=== PATIENT | female | born 1950 | race Caucasian/White ===

== ENCOUNTER 2019-02-09 19:09 | Inpatient (IN) | payer MEDICARE, MEDICAID ==
[~2019-02-09 19:09] MED LIST: ISOVUE-370 76%-LOCM 1 ML ONE
--- NOTE | 2019-02-09 20:49 | CT ---
CT ANGIOGRAM OF THE CHEST: 02/09/19 HISTORY: Chest pain, unresolved. Cough. COMPARISON: None. TECHNIQUE: CT angiogram of the chest is performed in the axial plane. Three dimensional reformatted images are s ubmitted for interpretation. FINDINGS: No mediastinal mass, lymphadenopathy or hematoma. Heart size is normal. No significant pericardial fl uid. Coronary artery calcifications identified. The thoracic and upper abdominal aorta have a normal caliber. No periaortic fat stranding. The visualized solid organs are grossly unremarkable. Mild atrophy of the pancreas. Contracted gallbl adder. Trachea and central bronchi are patent. Patchy ground glass opacities throughout the lung parenchyma additionally with dependent atelectatic change. No mass or consolidation. No pleural effusion or pneu mothorax. 3 mm nodules in the middle lobe. Adequate contrast opacification of the pulmonary arterial system to the level of the segmental arteri es. No filling defect to suggest thromboembolism. No pleural effusion or pneumothorax. IMPRESSION: 1. No evidence of pulmonary artery embolism to the level of the segmental arteries. 2. Patchy ground glass opacities. Correlate for edema or atypical infection. POS: PPP
[2019-02-09 23:17] VITALS: BMI 33.8
[2019-02-09 23:42] LABS: Troponin I Less than 0.010 ng/mL (< 0.028)
[2019-02-09] MEDS ORDERED: Sodium Chloride 0.9% 1,000 ML IV SCH (23:45)
[2019-02-09] MEDS ORDERED: Prevnar 13-Val Conj/PF 0.5 ML SYRINGE IM ONE (23:45)
[2019-02-10] MEDS: Acetaminophen/Codeine 30-300mg Tablet PO PRN (00:58)
[2019-02-10 02:20] LABS: Troponin I Less than 0.010 ng/mL (< 0.028)
[2019-02-10] MEDS ORDERED: Nitroglycerin 0.4 MG TAB (25 Tab Bottle) PO PRN (06:16)
[2019-02-10] MEDS ORDERED: Acetaminophen/Codeine 30-300mg Tablet PO PRN (06:18)
[2019-02-10] MEDS ORDERED: Bisacodyl 10 MG SUPP PR PRN (06:19)
[2019-02-10] MEDS ORDERED: Acetaminophen 325 MG TAB PO PRN (06:19)
[2019-02-10] MEDS ORDERED: Senokot S 8.6-50 MG TAB PO PRN (06:19)
[2019-02-10] MEDS: Budesonide 0.5 MG/2 ML NEB INH SCH ×2 (06:59→18:34)
[2019-02-10] MEDS ORDERED: Azithromycin 500 MG in Sodium Chloride 0.9% 250 ML 250 ML IVPB SCH (07:00)
[2019-02-10 07:19] LABS: #Eosinphils 0.2 thou/uL (0.0-0.7); #Lymphocytes 1.3 thou/uL (1.20-3.40); #Monocytes 0.3 thou/uL (0.11-0.59); #Neutrophils 3.4 thou/uL (1.40-6.50); %Basophils 0.1 % (0.0-1.0); %Lymphocytes 25.6 % (21.0-51.0); %Monocytes 6.4 % (0.0-10.0); %Neutrophils 64.9 % (42.0-75.0); Hemoglobin 9.7 g/dL (12.0-16.0); Mean Corpuscular HGB CONC 34.1 g/dL (32.0-36.0); Mean Corpuscular Hemoglobin 29.2 pg (27.0-31.0); Mean Corpuscular Volume 85.5 fL (78.0-98.0); Mean Platelet Volume 8.4 fL (7.4-10.4); Platelet Count 158 thou/uL (130-400); RBC Distribution Width 14.5 % (11.5-14.5); Red Blood Cell (RBC) Count 3.32 mill/uL (4.20-5.40); White Blood Cell (WBC) Count 5.2 thou/uL (4.8-10.8)
[2019-02-10 07:26] LABS: ALT (SGPT) 11 U/L (8-55); AST (SGOT) 14 U/L (5-34); Albumin 3.3 g/dL (3.4-4.8); Alkaline Phosphatase 87 U/L (40-150); Anion Gap 10 mmol/L (10-20); BUN (Urea Nitrogen) 9 mg/dL (9.8-20.1); Bilirubin, Total 0.3 mg/dL (0.2-1.2); CRP (Inflammatory) 2.88 mg/dL (= or < 0.5); Calc. Creatinine Clearance 67 mL/min (70-130); Calcium 7.8 mg/dL (7.8-10.44); Carbon Dioxide 24 mmol/L (23-31); Chloride 108 mmol/L (98-107); Estimated GFR-MDRD 42; Globulin 2.9 g/dL (2.4-3.5); Glucose 116 mg/dL (80-115); Magnesium 1.6 mg/dL (1.6-2.6); Potassium 3.8 mmol/L (3.5-5.1); Protein, Total 6.2 g/dL (6.0-8.3); Sodium 138 mmol/L (136-145)
[2019-02-10] MEDS: Sodium Chloride 0.9% 1,000 ML IV SCH ×2 (08:43→20:38)
[2019-02-10] MEDS: cefTRIAXone\\ROCEPHIN 2 GM in Sodium Chloride 0.9% 100 ML IVPB SCH (08:43)
[2019-02-10] MEDS: Metoprolol Tartrate 25 MG TAB PO SCH ×2 (08:46→20:40)
[2019-02-10] MEDS: guaiFENesin ER 600 MG TAB PO SCH ×2 (08:46→20:39)
[2019-02-10] MEDS: Losartan 25 MG TAB PO SCH (08:46)
[2019-02-10] MEDS: Aspirin 325 mg Enteric Coated Tablet PO SCH (08:46)
[2019-02-10] MEDS: Montelukast Sodium 10 mg Tablet PO SCH (08:47)
[2019-02-10] MEDS: Clopidogrel Bisulfate 75 MG TAB PO SCH (08:47)
[2019-02-10] MEDS: Escitalopram Oxalate 20 mg Tablet PO SCH (08:47)
[2019-02-10] MEDS ORDERED: Prevnar 13-Val Conj/PF 0.5 ML SYRINGE IM ONE (09:00)
[2019-02-10] MEDS ORDERED: Non-Formulary Item 1 EACH (Omeprazole [Omeprazole] 40 MG) PO SCH (09:00)
[2019-02-10 11:07] LABS: Legionella Urinary Ag Negative (Negative); Strep pneumo Urine Ag NEGATIVE (NEGATIVE)
[2019-02-10] MEDS ORDERED: Ondansetron PF 4 MG/2 ML Vial IVP PRN (12:35)
[2019-02-10] MEDS ORDERED: Cepastat Lozenges 1 LOZ PO PRN (13:25)
[2019-02-10] MEDS ORDERED: hydrOXYzine 25 MG TAB PO PRN (18:19)
[2019-02-10] MEDS ORDERED: Dextrose 50% Abboject 50 ML SYRINGE SLOW IVP PRN (18:21)
[2019-02-10] MEDS ORDERED: Dextrose 5% in Water 1,000 ML IV PRN (18:21)
[2019-02-10] MEDS: Atorvastatin Calcium 40 MG TAB PO SCH (20:39)
[2019-02-10] MEDS: Doxycycline 100 MG CAP PO SCH (20:39)
[2019-02-10] MEDS: ALPRAZolam 0.25 MG TAB PO PRN (20:40)
[2019-02-10] MEDS: Insulin Regular 300 UNITS/3 ML VIAL SC PRN (20:50)
[2019-02-10] MEDS ORDERED: Enoxaparin Sodium 40 MG/0.4 ML SYRINGE SC SCH (21:00)
[2019-02-10] MEDS ORDERED: Non-Formulary Item 1 EACH (Atorvastatin Calcium [Atorvastatin Calcium] 80 MG) PO SCH (21:00)
--- NOTE | 2019-02-10 21:39 | PDOC.EVN ---
Event Note - Event Note Event Note: Note dictated. Full code. DPOA - spouse.
[2019-02-11 05:51] LABS: #Eosinphils 0.1 thou/uL (0.0-0.7); #Lymphocytes 1.2 thou/uL (1.20-3.40); #Monocytes 0.3 thou/uL (0.11-0.59); #Neutrophils 3.3 thou/uL (1.40-6.50); %Basophils 0.4 % (0.0-1.0); %Eosinophils 2.4 % (0.0-10.0); %Lymphocytes 23.7 % (21.0-51.0); %Monocytes 5.9 % (0.0-10.0); %Neutrophils 67.6 % (42.0-75.0); Hemoglobin 9.1 g/dL (12.0-16.0); Mean Corpuscular HGB CONC 34.2 g/dL (32.0-36.0); Mean Corpuscular Hemoglobin 30.1 pg (27.0-31.0); Platelet Count 137 thou/uL (130-400); RBC Distribution Width 14.9 % (11.5-14.5); Red Blood Cell (RBC) Count 3.01 mill/uL (4.20-5.40); White Blood Cell (WBC) Count 4.9 thou/uL (4.8-10.8)
[2019-02-11 06:22] LABS: Anion Gap 13 mmol/L (10-20); BUN (Urea Nitrogen) 6 mg/dL (9.8-20.1); Calc. Creatinine Clearance 79 mL/min (70-130); Calcium 7.6 mg/dL (7.8-10.44); Carbon Dioxide 22 mmol/L (23-31); Chloride 111 mmol/L (98-107); Estimated GFR-MDRD 50; Glucose 135 mg/dL (80-115); Potassium 3.6 mmol/L (3.5-5.1); Sodium 142 mmol/L (136-145)
[2019-02-11] MEDS: Budesonide 0.5 MG/2 ML NEB INH SCH ×2 (06:53→18:40)
--- NOTE | 2019-02-11 07:38 | HP ---
PRIMARY CARE PHYSICIAN: Dr. Salazar. The patient was seen and examined on February 10, 2019 at 11:30 a.m. CHIEF COMPLAINT: Shortness of breath and cough of 2 weeks' duration. HISTORY OF PRESENT ILLNESS: The patient is a 68-year-old female with diabetes mellitus type 2, hypertension, and hyperlipidemia, who presented to the emergency room at [facility] with above complaints. Over the last 2 weeks, the patient has a cough along with shortness of breath. She also had significant chest tightness, which was worse on coughing. The cough was initially nonproductive. However, over the last 2 to 3 days, it has become productive of thick greenish phlegm. She felt febrile, however, did not record her temperature. Over the last 2 to 3 days, the patient has been short of breath along with wheezing. The chest discomfort also got worse, for which she presented to the emergency room. No recent immobilization, travel, nausea, vomiting, or diaphoresis reported. There was no radiation from the chest pain. She was seen by primary care physician approximately a week ago and was advised to use albuterol inhaler. In the emergency room at [facility], her initial vital signs showed temperature 98.8, respirations 21, pulse of 76 with a blood pressure 165/88 with O2 saturation 98% on room air. Her WBC count was 8.3 with 75.1% neutrophils. D-dimer was 0.84. Lactic acid was normal. Troponin was normal. CT angiogram of the chest in the emergency room was consistent with patchy ground-glass opacities throughout the lung parenchyma. Her EKG showed sinus rhythm without significant ST-T wave changes. She received aspirin, sublingual nitroglycerin, Tessalon Perles along with Protonix. She was then transferred to this facility for hospital admission. At this facility, she received Levaquin 750 mg along with IV fluids. PAST MEDICAL HISTORY: 1. Diabetes mellitus, type 2. 2. CKD, stage 3. 3. Hypertension. 4. Hyperlipidemia. 5. Coronary artery disease, status post stent placement. 6. Depression. PAST SURGICAL HISTORY: 1. Appendectomy. 2. Hysterectomy. ALLERGIES: NO KNOWN DRUG ALLERGIES. SOCIAL HISTORY: The patient currently lives at home with her . She denies current use of smoking, alcohol, or drug use. FAMILY HISTORY: Positive for premature coronary artery disease. Brother also had CVA. CURRENT HOME MEDICATIONS: 1. Tylenol No. 3 as needed. 2. Albuterol inhaler as needed. 3. Aspirin 325 mg daily. 4. Lipitor 80 mg q.h.s. 5. Plavix 75 mg daily. 6. Escitalopram 20 mg daily. 7. Hydrochlorothiazide 25 mg daily. 8. Atarax 25 mg daily. 9. Tradjenta 5 mg daily. 10. Cozaar 50 mg daily. 11. Metoprolol tartrate 50 mg daily. 12. Singulair 10 mg daily. 13. Omeprazole 40 mg daily. REVIEW OF SYSTEMS: All other review of systems were reviewed and were found negative. PHYSICAL EXAMINATION: VITAL SIGNS: As discussed above. GENERAL: A 68-year-old female, in mild distress from repeated coughing. HEENT: Head; atraumatic, normocephalic. Sclerae anicteric. Moist mucous membranes. No oral lesion. NECK: Supple. No JVD appreciated. No carotid bruit. LUNGS: Show bibasilar rhonchi with scattered rales. Minimal accessory muscle use. HEART: S1 and S2 present. Regular rate and rhythm. No rubs or gallops appreciated. ABDOMEN: Soft, nontender. Bowel sounds present. EXTREMITIES: No calf tenderness. No significant edema. NEUROLOGIC: Grossly nonfocal. Moves all 4 extremities. PSYCHIATRIC: Alert, awake, oriented x3. SKIN: Warm and dry. LYMPH NODES: No palpable lymph nodes in the neck. PERIPHERAL VASCULAR: Radial pulses palpable bilaterally. MUSCULOSKELETAL: No joint swelling or tenderness. LABORATORY FINDINGS: CBC showed a WBC of 8.3 with 75.1% neutrophils, hemoglobin 11.2. D-dimer 0.84. Sodium of 140, potassium 4, chloride 107, bicarb 21, BUN 8, creatinine 1.27. Troponins were negative. LFTs negative. Chest x-ray by my review was negative for infiltrate. CT angiogram of the chest showed bilateral pneumonia. EKG by my review as discussed above. IMPRESSION: 1. Bilateral pneumonia, suspected viral. Bacterial is a possibility as well. 2. Diabetes mellitus type 2. 3. Hypertension. 4. Hyperlipidemia. 5. Chronic kidney disease, stage 3. 6. Obesity with a BMI of 33.8. 7. Family history of heart disease. 8. Anxiety. 9. Depression, mild, stable. No suicidal ideation. 10. Elevated inflammatory markers. 11. Gastroesophageal reflux disease. 12. Coronary artery disease, status post stent placement. 13. Chronic pain syndrome. 14. The patient also has atypical chest discomfort, probably secondary to pneumonia. PLAN: The patient will be monitored on the telemetry unit due to chest discomfort. We will start her on IV ceftriaxone along with doxycycline. We will avoid azithromycin and Levaquin due to interaction with Lexapro. We will resume other selected home medications. We will recheck labs in a.m. We will check urine for Legionella and Strep pneumoniae. We will get respiratory viral panel. Nebulizer treatment every 4 hours. We will also add Pulmicort nebulization b.i.d. Vital signs every 4 hours. Insulin sliding scale. Plan of care was discussed with the patient in detail. She stated understanding. Job ID: [id number]
[2019-02-11] MEDS: Sodium Chloride 0.9% 1,000 ML IV SCH ×2 (08:36→23:30)
[2019-02-11] MEDS: Aspirin 325 mg Enteric Coated Tablet PO SCH (08:41)
[2019-02-11] MEDS: Clopidogrel Bisulfate 75 MG TAB PO SCH (08:41)
[2019-02-11] MEDS: Alogliptin 25 MG TAB PO SCH (08:41)
[2019-02-11] MEDS: cefTRIAXone\\ROCEPHIN 2 GM in Sodium Chloride 0.9% 100 ML IVPB SCH (08:41)
[2019-02-11] MEDS: Doxycycline 100 MG CAP PO SCH ×2 (08:41→20:06)
[2019-02-11] MEDS: Losartan 25 MG TAB PO SCH (08:42)
[2019-02-11] MEDS: Escitalopram Oxalate 20 mg Tablet PO SCH (08:42)
[2019-02-11] MEDS: guaiFENesin ER 600 MG TAB PO SCH ×2 (08:42→20:06)
[2019-02-11] MEDS: Metoprolol Tartrate 25 MG TAB PO SCH ×2 (08:42→20:06)
[2019-02-11] MEDS: Montelukast Sodium 10 mg Tablet PO SCH (08:43)
[2019-02-11] MEDS: Saccharomyces boulardii 250 MG CAP PO SCH (08:43)
[2019-02-11] MEDS ORDERED: Non-Formulary Item 1 EACH (Linagliptin [Tradjenta] 5 MG) PO SCH (09:00)
[2019-02-11] MEDS ORDERED: Aspirin 325 MG TAB PO SCH (09:00)
[2019-02-11] MEDS: Insulin Regular 300 UNITS/3 ML VIAL SC PRN (12:40)
--- NOTE | 2019-02-11 16:59 | PDOC.PN ---
- Subjective Encounter Start Date: 02/11/19 Encounter Start Time: 12:30 Patient seen and examined for Pneumonia. Feeling somewhat better. Cough +. No new complaints. No overnight events - Objective Resuscitation Status - Order Detail: 02/10/19 06:19 Resuscitation Status Routine Resuscitation Status: FULL: Full Resuscitation Vital Signs & Weight: Vital Signs (12 hours) Temp Pulse Resp BP Pulse Ox 02/11/19 16:46 97.9 F 92 20 140/63 97 02/11/19 14:38 82 16 97 02/11/19 11:43 97.8 F 80 20 131/62 99 02/11/19 10:08 76 16 92 L 02/11/19 07:55 97.4 F L 94 20 143/66 H 93 L 02/11/19 06:51 84 16 99 Weight Weight 216 lb 1.6 oz I&O: 02/10/19 02/11/19 02/12/19 06:59 06:59 06:59 Intake Total 651 2800 Output Total 300 1100 Balance 351 1700 Result Diagrams: 02/11/19 05:34 02/11/19 05:34 Additional Labs: Accuchecks 02/11/19 02/10/19 02/10/19 05:08 20:35 17:34 POC Glucose 140 H 317 H 168 H EKG Reviewed by me: Yes (Tele SR) Phys Exam - Physical Examination Constitutional: NAD Respiratory: no wheezing Scat rales/rhonchi Cardiovascular: RRR, no rub Gastrointestinal: soft, non-tender, positive bowel sounds Musculoskeletal: no edema Dx/Plan - Plan DVT proph w/SCDs 1. Bilateral pneumonia, suspected viral vs gram negative/Atypical chest discomfort 2. Diabetes mellitus type 2. 3. Hypertension. 4. Hyperlipidemia. 5. Chronic kidney disease, stage 3. 6. Obesity with a BMI of 33.8. 7. Family history of heart disease. 8. Anxiety. 9. Depression, mild, stable. No suicidal ideation. 10. Elevated inflammatory markers. 11. Gastroesophageal reflux disease. 12. Coronary artery disease, status post stent placement. 13. Chronic pain syndrome. PLAN: Cont IV Atbx DC IVF later today Cont current meds as below DC in 24 hr if stable Rhinovirus positive on Resp Viral panel Await Echo Microbiology 02/10/19 10:04 Nasopharyngeal swab Respiratory Virus Panel (PCR) - Final 02/09/19 21:38 Venous blood - Right Arm Blood Culture - Preliminary NO GROWTH AT 48 HOURS 02/09/19 21:38 Venous blood - Left Hand Blood Culture - Preliminary NO GROWTH AT 48 HOURS Laboratory Tests 02/10/19 10:10 Ur L.pneumophila Ag Negative Ur Strep pneumoniae Ag NEGATIVE Review of Systems - Review of Systems Respiratory: Cough, Dry. negative: Shortness of Breath, Hemoptysis, SOB with Excertion, Pleuritic Pain, Sputum, Wheezing Cardiovascular: negative: chest pain, palpitations, orthopnea, paroxysmal nocturnal dyspnea, edema, light headedness, other Gastrointestinal: negative: Nausea, Vomiting, Abdominal Pain, Diarrhea, Constipation, Melena, Hematochezia, Other - Medications/Allergies Allergies/Adverse Reactions: Allergies Allergy/AdvReac Type Severity Reaction Status Date / Time No Known Allergies Allergy Verified 02/09/19 23:24 Medications: Current Medications Acetaminophen (Tylenol) 650 mg PO Q4H PRN PRN Reason: Headache/Fever/Mild Pain (1-3) Acetaminophen/Codeine Phosphate (Tylenol #3) 2 tab PO Q6H PRN PRN Reason: Cough Last Admin: 02/10/19 00:58 Dose: 2 tab Acetaminophen/Codeine Phosphate (Tylenol #3) 2 tab PO PRN PRN PRN Reason: pain Last Admin: 02/10/19 18:48 Dose: 2 tab Albuterol/Ipratropium (Duoneb) 3 ml NEB [id number] Last Admin: 02/11/19 14:38 Dose: 3 ml Albuterol/Ipratropium (Duoneb) 3 ml NEB [id number] PRN PRN Reason: SOB &/or Wheezing Alogliptin Benzoate (Alogliptin) 25 mg PO DAILY [facility] Last Admin: 02/11/19 08:41 Dose: 25 mg Alprazolam (Xanax) 0.25 mg PO BIDPRN PRN PRN Reason: Anxiety Last Admin: 02/10/19 20:40 Dose: 0.25 mg Aspirin (Ecotrin) 325 mg PO DAILY [facility] Last Admin: 02/11/19 08:41 Dose: 325 mg Atorvastatin Calcium (Lipitor) 80 mg PO HS [facility] Last Admin: 02/10/19 20:39 Dose: 80 mg Bisacodyl (Dulcolax) [address] DAILYPRN PRN PRN Reason: Constipation Budesonide (Pulmicort Neb Solution) 0.5 mg INH BID-RT [facility] Last Admin: 02/11/19 06:53 Dose: 0.5 mg Calcium Carbonate (Tums) 1,000 mg PO Q4H PRN PRN Reason: Heartburn or Indigestion Clopidogrel Bisulfate (Plavix) 75 mg PO DAILY [facility] Last Admin: 02/11/19 08:41 Dose: 75 mg Dextrose/Water (Dextrose 50%) 25 gm SLOW IVP PRN PRN PRN Reason: Hypoglycemia Doxycycline Hyclate (Vibramycin) 100 mg PO BID [facility] Last Admin: 02/11/19 08:41 Dose: 100 mg Escitalopram Oxalate (Lexapro) 20 mg PO DAILY [facility] Last Admin: 02/11/19 08:42 Dose: 20 mg Glucagon (Glucagon) 1 mg IM PRN PRN PRN Reason: Hypoglycemia Guaifenesin (Mucinex) 600 mg PO Q12HR [facility] Last Admin: 02/11/19 08:42 Dose: 600 mg Hydroxyzine HCl (Atarax) 25 mg PO DAILY PRN PRN Reason: Itching Ceftriaxone Sodium 2 gm/ (Sodium Chloride) 100 mls @ 200 mls/hr IVPB Q24HR [facility] Last Admin: 02/11/19 08:41 Dose: 100 mls Sodium Chloride (Normal Saline 0.9%) 1,000 mls @ 75 mls/hr IV .[id number] [facility] Stop: 02/11/19 23:59 Last Admin: 02/11/19 08:36 Dose: 1,000 mls Dextrose/Water (D5w) 1,000 mls @ 0 mls/hr IV .Q0M PRN PRN Reason: Hypoglycemia Insulin Human Regular (Humulin R) 0 units SC .MILD SLIDING SCALE PRN PRN Reason: Mild Correctional Scale Last Admin: 02/11/19 12:40 Dose: 2 unit Insulin Human Regular (Humulin R) 0 units SC .BEDTIME SLIDING SC PRN PRN Reason: Bedtime Correctional Scale Last Admin: 02/10/19 20:50 Dose: 4 unit Losartan Potassium (Cozaar) 50 mg PO DAILY [facility] Last Admin: 02/11/19 08:42 Dose: 50 mg Metoprolol Tartrate (Lopressor) 25 mg PO BID [facility] Last Admin: 02/11/19 08:42 Dose: 25 mg Montelukast Sodium (Singulair) 10 mg PO DAILY [facility] Last Admin: 02/11/19 08:43 Dose: 10 mg Nitroglycerin (Nitrostat) 0.4 mg PO Q5MIN PRN PRN Reason: Chest Pain Ondansetron HCl (Zofran Odt) 4 mg PO Q6H PRN PRN Reason: Nausea/Vomiting Ondansetron HCl (Zofran) 4 mg IVP Q6H PRN PRN Reason: Nausea/Vomiting Last Admin: 02/10/19 13:13 Dose: 4 mg Pantoprazole Sodium (Protonix) 40 mg PO DAILY [facility] Last Admin: 02/11/19 08:43 Dose: 40 mg Saccharomyces Boulardii (Florastor) 250 mg PO DAILY [facility] Last Admin: 02/11/19 08:43 Dose: 250 mg Senna/Docusate Sodium (Senokot S) 2 tab PO BID PRN PRN Reason: Constipation Sodium Chloride (Flush - Normal Saline) 10 ml IVF PRN PRN PRN Reason: Saline Flush Throat Lozenges (Cepastat Lozenges) 1 daisy PO Q2H PRN PRN Reason: Sore Throat
[2019-02-11] MEDS: Ondansetron ODT 4 MG TAB PO PRN (20:05)
[2019-02-11] MEDS: Atorvastatin Calcium 40 MG TAB PO SCH (20:06)
[2019-02-11] MEDS: ALPRAZolam 0.25 MG TAB PO PRN (20:06)
[2019-02-11] MEDS: Acetaminophen/Codeine 30-300mg Tablet PO PRN (21:20)
[2019-02-12] MEDS: Budesonide 0.5 MG/2 ML NEB INH SCH ×2 (06:43→20:30)
[2019-02-12] MEDS: cefTRIAXone\\ROCEPHIN 2 GM in Sodium Chloride 0.9% 100 ML IVPB SCH (10:10)
[2019-02-12] MEDS: Escitalopram Oxalate 20 mg Tablet PO SCH (10:11)
[2019-02-12] MEDS: Losartan 25 MG TAB PO SCH (10:11)
[2019-02-12] MEDS: Montelukast Sodium 10 mg Tablet PO SCH (10:11)
[2019-02-12] MEDS: Doxycycline 100 MG CAP PO SCH ×2 (10:11→20:34)
[2019-02-12] MEDS: Alogliptin 25 MG TAB PO SCH (10:11)
[2019-02-12] MEDS: Aspirin 325 mg Enteric Coated Tablet PO SCH (10:12)
[2019-02-12] MEDS: Metoprolol Tartrate 25 MG TAB PO SCH ×2 (10:12→20:35)
[2019-02-12] MEDS: Clopidogrel Bisulfate 75 MG TAB PO SCH (10:12)
[2019-02-12] MEDS: Saccharomyces boulardii 250 MG CAP PO SCH (10:12)
[2019-02-12] MEDS: guaiFENesin ER 600 MG TAB PO SCH ×2 (10:12→20:34)
--- NOTE | 2019-02-12 14:23 | PDOC.PN ---
- Subjective Encounter Start Date: 02/12/19 Encounter Start Time: 14:21 Patient seen and examined for Pneumonia. Feels gen weak. Didn't sleep well. Dry cough. No overnight events - Objective Resuscitation Status - Order Detail: 02/10/19 06:19 Resuscitation Status Routine Resuscitation Status: FULL: Full Resuscitation MAR Reviewed: Yes Vital Signs & Weight: Vital Signs (12 hours) Temp Pulse Resp BP Pulse Ox 02/12/19 10:26 82 20 92 L 02/12/19 09:05 98.3 F 80 20 143/64 H 94 L 02/12/19 06:41 81 16 97 02/12/19 04:23 98.5 F 84 18 139/65 95 Weight Weight 216 lb 1.6 oz I&O: 02/11/19 02/12/19 02/13/19 06:59 06:59 06:59 Intake Total 2800 2735 Output Total 1100 1120 Balance 1700 1615 Result Diagrams: 02/11/19 05:34 02/11/19 05:34 Additional Labs: Accuchecks 02/12/19 02/11/19 02/11/19 05:11 20:11 16:56 POC Glucose 144 H 178 H 121 H 02/11/19 11:18 POC Glucose 197 H EKG Reviewed by me: Yes (Tele SR) Phys Exam - Physical Examination Constitutional: NAD Respiratory: no wheezing B/L rhonchi Cardiovascular: RRR, no rub Gastrointestinal: soft, non-tender Musculoskeletal: no edema Neurological: moves all 4 limbs Psychiatric: A&O x 3 Dx/Plan - Plan DVT proph w/SCDs 1. Bilateral pneumonia, suspected viral vs gram negative/Atypical chest discomfort/Rhinovirus URTI 2. Diabetes mellitus type 2. 3. Hypertension. 4. Hyperlipidemia. 5. Chronic kidney disease, stage 3. 6. Obesity with a BMI of 33.8. 7. Family history of heart disease. 8. Anxiety. 9. Depression, mild, stable. No suicidal ideation. 10. Elevated inflammatory markers. 11. Gastroesophageal reflux disease. 12. Coronary artery disease, status post stent placement. 13. Chronic pain syndrome. PLAN: Cont IV Atbx AM labs Restart IVF due to poor appetite Cont current meds as below Repeat CXR in AM Echo reviewed Review of Systems - Review of Systems Respiratory: negative: Cough, Dry, Shortness of Breath, Hemoptysis, SOB with Excertion, Pleuritic Pain, Sputum, Wheezing Cardiovascular: negative: chest pain, palpitations, orthopnea, paroxysmal nocturnal dyspnea, edema, light headedness, other Gastrointestinal: negative: Nausea, Vomiting, Abdominal Pain, Diarrhea, Constipation, Melena, Hematochezia, Other - Medications/Allergies Allergies/Adverse Reactions: Allergies Allergy/AdvReac Type Severity Reaction Status Date / Time No Known Allergies Allergy Verified 02/09/19 23:24 Medications: Current Medications Acetaminophen (Tylenol) 650 mg PO Q4H PRN PRN Reason: Headache/Fever/Mild Pain (1-3) Acetaminophen/Codeine Phosphate (Tylenol #3) 2 tab PO Q6H PRN PRN Reason: Cough Last Admin: 02/11/19 21:20 Dose: 2 tab Acetaminophen/Codeine Phosphate (Tylenol #3) 2 tab PO PRN PRN PRN Reason: pain Last Admin: 02/10/19 18:48 Dose: 2 tab Albuterol/Ipratropium (Duoneb) 3 ml NEB [id number] PRN PRN Reason: SOB &/or Wheezing Albuterol/Ipratropium (Duoneb) 3 ml NEB [id number] Alogliptin Benzoate (Alogliptin) 25 mg PO DAILY [facility] Last Admin: 02/12/19 10:11 Dose: 25 mg Alprazolam (Xanax) 0.25 mg PO BIDPRN PRN PRN Reason: Anxiety Last Admin: 02/11/19 20:06 Dose: 0.25 mg Aspirin (Ecotrin) 325 mg PO DAILY [facility] Last Admin: 02/12/19 10:12 Dose: 325 mg Atorvastatin Calcium (Lipitor) 80 mg PO HS [facility] Last Admin: 02/11/19 20:06 Dose: 80 mg Bisacodyl (Dulcolax) 10 mg [place] DAILYPRN PRN PRN Reason: Constipation Budesonide (Pulmicort Neb Solution) 0.5 mg INH BID-RT [facility] Last Admin: 02/12/19 06:43 Dose: 0.5 mg Calcium Carbonate (Tums) 1,000 mg PO Q4H PRN PRN Reason: Heartburn or Indigestion Clopidogrel Bisulfate (Plavix) 75 mg PO DAILY [facility] Last Admin: 02/12/19 10:12 Dose: 75 mg Dextrose/Water (Dextrose 50%) 25 gm SLOW IVP PRN PRN PRN Reason: Hypoglycemia Doxycycline Hyclate (Vibramycin) 100 mg PO BID [facility] Last Admin: 02/12/19 10:11 Dose: 100 mg Escitalopram Oxalate (Lexapro) 20 mg PO DAILY [facility] Last Admin: 02/12/19 10:11 Dose: 20 mg Glucagon (Glucagon) 1 mg IM PRN PRN PRN Reason: Hypoglycemia Guaifenesin (Mucinex) 600 mg PO Q12HR [facility] Last Admin: 02/12/19 10:12 Dose: 600 mg Hydroxyzine HCl (Atarax) 25 mg PO DAILY PRN PRN Reason: Itching Ceftriaxone Sodium 2 gm/ (Sodium Chloride) 100 mls @ 200 mls/hr IVPB Q24HR [facility] Last Admin: 02/12/19 10:10 Dose: Not Given Dextrose/Water (D5w) 1,000 mls @ 0 mls/hr IV .Q0M PRN PRN Reason: Hypoglycemia Sodium Chloride (1/2 Normal Saline) 1,000 mls @ 75 mls/hr IV .[id number] [facility] Insulin Human Regular (Humulin R) 0 units SC .MILD SLIDING SCALE PRN PRN Reason: Mild Correctional Scale Last Admin: 02/11/19 12:40 Dose: 2 unit Insulin Human Regular (Humulin R) 0 units SC .BEDTIME SLIDING SC PRN PRN Reason: Bedtime Correctional Scale Last Admin: 02/10/19 20:50 Dose: 4 unit Losartan Potassium (Cozaar) 50 mg PO DAILY [facility] Last Admin: 02/12/19 10:11 Dose: 50 mg Metoprolol Tartrate (Lopressor) 25 mg PO BID [facility] Last Admin: 02/12/19 10:12 Dose: 25 mg Montelukast Sodium (Singulair) 10 mg PO DAILY [facility] Last Admin: 02/12/19 10:11 Dose: 10 mg Nitroglycerin (Nitrostat) 0.4 mg PO Q5MIN PRN PRN Reason: Chest Pain Ondansetron HCl (Zofran Odt) 4 mg PO Q6H PRN PRN Reason: Nausea/Vomiting Last Admin: 02/11/19 20:05 Dose: 4 mg Ondansetron HCl (Zofran) 4 mg IVP Q6H PRN PRN Reason: Nausea/Vomiting Last Admin: 02/10/19 13:13 Dose: 4 mg Pantoprazole Sodium (Protonix) 40 mg PO DAILY [facility] Last Admin: 02/12/19 10:12 Dose: 40 mg Saccharomyces Boulardii (Florastor) 250 mg PO DAILY [facility] Last Admin: 02/12/19 10:12 Dose: 250 mg Senna/Docusate Sodium (Senokot S) 2 tab PO BID PRN PRN Reason: Constipation Sodium Chloride (Flush - Normal Saline) 10 ml IVF PRN PRN PRN Reason: Saline Flush Throat Lozenges (Cepastat Lozenges) 1 daisy PO Q2H PRN PRN Reason: Sore Throat
[2019-02-12] MEDS: Acetaminophen/Codeine 30-300mg Tablet PO PRN ×2 (16:51→21:07)
[2019-02-12] MEDS: Sodium Chloride 0.45% 1,000 ML IV SCH (20:31)
[2019-02-12] MEDS: Atorvastatin Calcium 40 MG TAB PO SCH (20:33)
[2019-02-12] MEDS: ALPRAZolam 0.25 MG TAB PO PRN (21:06)
[2019-02-12] MEDS: Ondansetron ODT 4 MG TAB PO PRN (21:54)
[2019-02-13 06:26] LABS: #Eosinphils 0.2 thou/uL (0.0-0.7); #Lymphocytes 1.2 thou/uL (1.20-3.40); #Monocytes 0.2 thou/uL (0.11-0.59); #Neutrophils 4.6 thou/uL (1.40-6.50); %Basophils 0.4 % (0.0-1.0); %Eosinophils 3.3 % (0.0-10.0); %Lymphocytes 18.5 % (21.0-51.0); %Monocytes 3.8 % (0.0-10.0); Hemoglobin 9.4 g/dL (12.0-16.0); Mean Corpuscular HGB CONC 33.2 g/dL (32.0-36.0); Mean Corpuscular Hemoglobin 29.7 pg (27.0-31.0); Mean Corpuscular Volume 89.3 fL (78.0-98.0); Platelet Count 149 thou/uL (130-400); RBC Distribution Width 15.2 % (11.5-14.5); Red Blood Cell (RBC) Count 3.16 mill/uL (4.20-5.40); White Blood Cell (WBC) Count 6.3 thou/uL (4.8-10.8)
[2019-02-13] MEDS: Budesonide 0.5 MG/2 ML NEB INH SCH ×2 (06:37→19:13)
[2019-02-13 06:43] LABS: Anion Gap 8 mmol/L (10-20); BUN (Urea Nitrogen) 9 mg/dL (9.8-20.1); Calc. Creatinine Clearance 73 mL/min (70-130); Calcium 8.3 mg/dL (7.8-10.44); Carbon Dioxide 27 mmol/L (23-31); Chloride 109 mmol/L (98-107); Estimated GFR-MDRD 46; Glucose 115 mg/dL (80-115); Magnesium 1.2 mg/dL (1.6-2.6); Potassium 3.8 mmol/L (3.5-5.1); Sodium 140 mmol/L (136-145)
[2019-02-13] MEDS ORDERED: Sodium Chloride 0.65% Nasal 44 ML BOT EA NARE PRN (07:49)
[2019-02-13] MEDS ORDERED: Diabetic Tussin 200 MG/10 ML UDCUP PO PRN (07:49)
[2019-02-13] MEDS ORDERED: Artificial Tears 18 DROP/0.9 ML EA EYE PRN (07:49)
[2019-02-13] MEDS ORDERED: hydrALAZINE 20 MG/ML VIAL SLOW IVP PRN (07:49)
[2019-02-13] MEDS ORDERED: Zolpidem Tartrate 5 MG TAB PO PRN (07:49)
[2019-02-13] MEDS ORDERED: Loperamide HCl 2 MG CAP PO PRN (07:49)
[2019-02-13] MEDS ORDERED: Eucerin (Mineral Oil/Petrolatum,White) 30 gm Jar TOP PRN (07:49)
[2019-02-13] MEDS ORDERED: Loratadine 10 MG TAB PO PRN (07:49)
[2019-02-13] MEDS: cefTRIAXone\\ROCEPHIN 2 GM in Sodium Chloride 0.9% 100 ML IVPB SCH (09:35)
[2019-02-13] MEDS: Sodium Chloride 0.45% 1,000 ML IV SCH ×2 (09:36→12:33)
[2019-02-13] MEDS: Escitalopram Oxalate 20 mg Tablet PO SCH (09:37)
[2019-02-13] MEDS: Metoprolol Tartrate 25 MG TAB PO SCH ×2 (09:38→20:48)
[2019-02-13] MEDS: Alogliptin 25 MG TAB PO SCH (09:38)
[2019-02-13] MEDS: Montelukast Sodium 10 mg Tablet PO SCH (09:38)
[2019-02-13] MEDS: Clopidogrel Bisulfate 75 MG TAB PO SCH (09:38)
[2019-02-13] MEDS: Aspirin 325 mg Enteric Coated Tablet PO SCH (09:38)
[2019-02-13] MEDS: Saccharomyces boulardii 250 MG CAP PO SCH (09:38)
[2019-02-13] MEDS: Losartan 25 MG TAB PO SCH (09:38)
[2019-02-13] MEDS: guaiFENesin ER 600 MG TAB PO SCH ×2 (09:38→20:47)
--- NOTE | 2019-02-13 10:04 | RAD ---
FRadiograph chest 2 views: HISTORY: 68-year-old female with persistent cough COMPARISON: 02/09/2019 FINDINGS: No interval change detected on frontal view. No consolidation, pulmonary edema, cardiomegaly, moderat e sized or large pleural effusion, or pneumothorax. On the lateral view, there is minimal blunting of one or both of posterior costophrenic angles. IMPRESSION: 1. Questionable tiny bilateral pleural effusions. 2. No convincing evidence of pneumonia. 3. Recommend follow-up
--- NOTE | 2019-02-13 10:31 | PDOC.PN ---
- Subjective Encounter Start Date: 02/13/19 Encounter Start Time: 08:20 Patient seen and examined. No new complaints. No overnight events - Objective Resuscitation Status - Order Detail: 02/10/19 06:19 Resuscitation Status Routine Resuscitation Status: FULL: Full Resuscitation MAR Reviewed: Yes Vital Signs & Weight: Vital Signs (12 hours) Temp Pulse Resp BP Pulse Ox 02/13/19 07:16 97.9 F 77 16 152/75 H 90 L 02/13/19 06:40 74 16 96 02/13/19 06:37 74 16 96 02/13/19 04:00 98.1 F 76 20 138/74 96 02/13/19 00:00 98.7 F 83 20 135/69 94 L Weight Weight 216 lb 1.6 oz I&O: 02/12/19 02/13/19 02/14/19 06:59 06:59 06:59 Intake Total 2735 Output Total 1120 Balance 1615 Result Diagrams: 02/13/19 06:19 02/13/19 06:19 Additional Labs: Accuchecks 02/13/19 02/12/19 05:03 20:42 POC Glucose 117 H 106 Radiology Reviewed by me: Yes Phys Exam - Physical Examination Constitutional: NAD HEENT: PERRLA, moist MMs, sclera anicteric Neck: no JVD, supple Respiratory: no wheezing, no rales, no rhonchi Cardiovascular: RRR, no significant murmur, no rub Gastrointestinal: soft, non-tender, no distention, positive bowel sounds Musculoskeletal: no edema, pulses present Neurological: non-focal, normal sensation, moves all 4 limbs Lymphatic: no nodes Psychiatric: normal affect, A&O x 3 Skin: no rash, normal turgor Dx/Plan (1) Bilateral pneumonia Code(s): J18.9 - PNEUMONIA, UNSPECIFIED ORGANISM Status: Acute (2) Anemia, normocytic normochromic Code(s): D64.9 - ANEMIA, UNSPECIFIED Status: Chronic (3) Anxiety and depression Code(s): F41.9 - ANXIETY DISORDER, UNSPECIFIED; F32.9 - MAJOR DEPRESSIVE DISORDER, SINGLE EPISODE, UNSPECIFIED Status: Chronic (4) CAD (coronary artery disease) Code(s): I25.10 - ATHSCL HEART DISEASE OF [place] CORONARY ARTERY W/O ANG PCTRS Status: Chronic (5) CKD (chronic kidney disease) stage 3, GFR 30-59 ml/min Code(s): N18.3 - CHRONIC KIDNEY DISEASE, STAGE 3 (MODERATE) Status: Chronic (6) Diabetes type 2, controlled Code(s): E11.9 - TYPE 2 DIABETES MELLITUS WITHOUT COMPLICATIONS Status: Chronic (7) Dyslipidemia Code(s): E78.5 - HYPERLIPIDEMIA, UNSPECIFIED Status: Chronic (8) GERD (gastroesophageal reflux disease) Code(s): K21.9 - GASTRO-ESOPHAGEAL REFLUX DISEASE WITHOUT ESOPHAGITIS Status: Chronic (9) Hypertension Code(s): I10 - ESSENTIAL (PRIMARY) HYPERTENSION Status: Chronic (10) Obesity (BMI 30.0-34.9) Code(s): E66.9 - OBESITY, UNSPECIFIED Status: Chronic - Plan cont current plan of care, continue antibiotics * continue rocephin * medication reviewed as below * symptomatic treatment * dc IVF. Review of Systems - Review of Systems ENT: negative: Ear Pain, Ear Discharge, Nose Pain, Nose Discharge, Nose Congestion, Mouth Pain, Mouth Swelling, Throat Pain, Throat Swelling, Other Respiratory: Cough. negative: Dry, Shortness of Breath, Hemoptysis, SOB with Excertion, Pleuritic Pain, Sputum, Wheezing Cardiovascular: negative: chest pain, palpitations, orthopnea, paroxysmal nocturnal dyspnea, edema, light headedness, other Gastrointestinal: negative: Nausea, Vomiting, Abdominal Pain, Diarrhea, Constipation, Melena, Hematochezia, Other Genitourinary: negative: Dysuria, Frequency, Incontinence, Hematuria, Retention , Other Musculoskeletal: negative: Neck Pain, Shoulder Pain, Arm Pain, Back Pain, Hand Pain, Leg Pain, Foot Pain, Other - Medications/Allergies Allergies/Adverse Reactions: Allergies Allergy/AdvReac Type Severity Reaction Status Date / Time No Known Allergies Allergy Verified 02/09/19 23:24 Medications: Current Medications Acetaminophen (Tylenol) 650 mg PO Q4H PRN PRN Reason: Headache/Fever/Mild Pain (1-3) Acetaminophen/Codeine Phosphate (Tylenol #3) 2 tab PO Q6H PRN PRN Reason: Cough Last Admin: 02/12/19 21:07 Dose: 2 tab Acetaminophen/Codeine Phosphate (Tylenol #3) 2 tab PO PRN PRN PRN Reason: pain Last Admin: 02/10/19 18:48 Dose: 2 tab Albuterol/Ipratropium (Duoneb) 3 ml NEB [id number] PRN PRN Reason: SOB &/or Wheezing Albuterol/Ipratropium (Duoneb) 3 ml NEB [id number] SCH Last Admin: 02/13/19 06:40 Dose: 3 ml Alogliptin Benzoate (Alogliptin) 25 mg PO DAILY [facility] Last Admin: 02/13/19 09:38 Dose: 25 mg Alprazolam (Xanax) 0.25 mg PO BIDPRN PRN PRN Reason: Anxiety Last Admin: 02/12/19 21:06 Dose: 0.25 mg Artificial Tears (Tears Naturale) 2 drop EA EYE PRN PRN PRN Reason: Dry Eyes Aspirin (Ecotrin) 325 mg PO DAILY [facility] Last Admin: 02/13/19 09:38 Dose: 325 mg Atorvastatin Calcium (Lipitor) 80 mg PO HS [facility] Last Admin: 02/12/19 20:33 Dose: 80 mg Bisacodyl (Dulcolax) 10 mg VT DAILYPRN PRN PRN Reason: Constipation Budesonide (Pulmicort Neb Solution) 0.5 mg INH BID-RT [facility] Last Admin: 02/13/19 06:37 Dose: 0.5 mg Calcium Carbonate (Tums) 1,000 mg PO Q4H PRN PRN Reason: Heartburn or Indigestion Clopidogrel Bisulfate (Plavix) 75 mg PO DAILY [facility] Last Admin: 02/13/19 09:38 Dose: 75 mg Dextrose/Water (Dextrose 50%) 25 gm SLOW IVP PRN PRN PRN Reason: Hypoglycemia Doxycycline Hyclate (Vibramycin) 100 mg PO BID [facility] Last Admin: 02/12/19 20:34 Dose: 100 mg Escitalopram Oxalate (Lexapro) 20 mg PO DAILY [facility] Last Admin: 02/13/19 09:37 Dose: 20 mg Glucagon (Glucagon) 1 mg IM PRN PRN PRN Reason: Hypoglycemia Guaifenesin (Mucinex) 600 mg PO Q12HR [facility] Last Admin: 02/13/19 09:38 Dose: 600 mg Guaifenesin (Robitussin Sf) 200 mg PO Q4H PRN PRN Reason: Cough Hydralazine HCl (Apresoline) 10 mg SLOW IVP Q4H PRN PRN Reason: SBP > 180 and HR < 70 Hydroxyzine HCl (Atarax) 25 mg PO DAILY PRN PRN Reason: Itching Ceftriaxone Sodium 2 gm/ (Sodium Chloride) 100 mls @ 200 mls/hr IVPB Q24HR [facility] Last Admin: 02/13/19 09:35 Dose: 100 mls Dextrose/Water (D5w) 1,000 mls @ 0 mls/hr IV .Q0M PRN PRN Reason: Hypoglycemia Insulin Human Regular (Humulin R) 0 units SC .MILD SLIDING SCALE PRN PRN Reason: Mild Correctional Scale Last Admin: 02/11/19 12:40 Dose: 2 unit Insulin Human Regular (Humulin R) 0 units SC .BEDTIME SLIDING SC PRN PRN Reason: Bedtime Correctional Scale Last Admin: 02/10/19 20:50 Dose: 4 unit Loperamide HCl (Imodium) 2 mg PO PRN PRN PRN Reason: Diarrhea/Loose Stools Loratadine (Claritin) 10 mg PO DAILYPRN PRN PRN Reason: Sinus Symptoms Losartan Potassium (Cozaar) 50 mg PO DAILY [facility] Last Admin: 02/13/19 09:38 Dose: 50 mg Metoprolol Tartrate (Lopressor) 25 mg PO BID [facility] Last Admin: 02/13/19 09:38 Dose: 25 mg Mineral Oil/White Petrolatum (Eucerin Cream) 0 gm TOP BIDPRN PRN PRN Reason: Dry Skin Montelukast Sodium (Singulair) 10 mg PO DAILY [facility] Last Admin: 02/13/19 09:38 Dose: 10 mg Nitroglycerin (Nitrostat) 0.4 mg PO Q5MIN PRN PRN Reason: Chest Pain Ondansetron HCl (Zofran Odt) 4 mg PO Q6H PRN PRN Reason: Nausea/Vomiting Last Admin: 02/12/19 21:54 Dose: 4 mg Ondansetron HCl (Zofran) 4 mg IVP Q6H PRN PRN Reason: Nausea/Vomiting Last Admin: 02/10/19 13:13 Dose: 4 mg Pantoprazole Sodium (Protonix) 40 mg PO DAILY [facility] Last Admin: 02/13/19 09:37 Dose: 40 mg Saccharomyces Boulardii (Florastor) 250 mg PO DAILY [facility] Last Admin: 02/13/19 09:38 Dose: 250 mg Senna/Docusate Sodium (Senokot S) 2 tab PO BID PRN PRN Reason: Constipation Sodium Chloride (Flush - Normal Saline) 10 ml IVF PRN PRN PRN Reason: Saline Flush Sodium Chloride ([place] 0.65%) 0 ml EA NARE QIDPRN PRN PRN Reason: Nasal Congestion Throat Lozenges (Cepastat Lozenges) 1 daisy PO Q2H PRN PRN Reason: Sore Throat Zolpidem Tartrate (Ambien) 5 mg PO HSPRN PRN PRN Reason: Insomnia
[2019-02-13] MEDS: Doxycycline 100 MG CAP PO SCH ×2 (14:11→20:47)
[2019-02-13] MEDS: Atorvastatin Calcium 40 MG TAB PO SCH (20:47)
[2019-02-13] MEDS: ALPRAZolam 0.25 MG TAB PO PRN (20:54)
[2019-02-14] MEDS: Budesonide 0.5 MG/2 ML NEB INH SCH ×2 (07:07→19:03)
[2019-02-14] MEDS: cefTRIAXone\\ROCEPHIN 2 GM in Sodium Chloride 0.9% 100 ML IVPB SCH (08:41)
[2019-02-14] MEDS: Losartan 25 MG TAB PO SCH (08:42)
[2019-02-14] MEDS: Escitalopram Oxalate 20 mg Tablet PO SCH (08:42)
[2019-02-14] MEDS: Doxycycline 100 MG CAP PO SCH (08:42)
[2019-02-14] MEDS: guaiFENesin ER 600 MG TAB PO SCH ×2 (08:42→20:42)
[2019-02-14] MEDS: Clopidogrel Bisulfate 75 MG TAB PO SCH (08:42)
[2019-02-14] MEDS: Montelukast Sodium 10 mg Tablet PO SCH (08:42)
[2019-02-14] MEDS: Saccharomyces boulardii 250 MG CAP PO SCH (08:42)
[2019-02-14] MEDS: Alogliptin 25 MG TAB PO SCH (08:42)
[2019-02-14] MEDS: Aspirin 325 mg Enteric Coated Tablet PO SCH (08:42)
[2019-02-14] MEDS: Metoprolol Tartrate 25 MG TAB PO SCH ×2 (08:42→20:42)
[2019-02-14] MEDS: Insulin Regular 300 UNITS/3 ML VIAL SC PRN ×2 (11:52→21:40)
[2019-02-14] MEDS ORDERED: Polyethylene Glycol 3350 17 GM Packet PO PRN (13:51)
--- NOTE | 2019-02-14 13:53 | PDOC.PN ---
- Subjective Encounter Start Date: 02/14/19 (f/u pneumonia) Encounter Start Time: 13:52 Subjective: Pt not feeling well - reports burning abd pain that radiates to chest, -: nausea, felt the room spinning eralier that has resolved. Able to -: ambulate around the floor today. - Objective Resuscitation Status - Order Detail: 02/10/19 06:19 Resuscitation Status Routine Resuscitation Status: FULL: Full Resuscitation Vital Signs & Weight: Vital Signs (12 hours) Temp Pulse Resp BP BP Pulse Ox 02/14/19 11:52 97.8 F 71 20 165/87 H 100 02/14/19 11:26 85 16 95 02/14/19 08:00 97.7 F 73 20 147/73 H 98 02/14/19 07:12 92 L 02/14/19 07:11 81 16 92 L 02/14/19 07:07 81 16 92 L Weight Weight 216 lb 1.6 oz I&O: 02/13/19 02/14/19 02/15/19 06:59 06:59 06:59 Intake Total 490 480 Balance 490 480 Result Diagrams: 02/13/19 06:19 02/14/19 14:45 Additional Labs: Accuchecks 02/14/19 02/14/19 02/14/19 13:41 11:35 04:24 POC Glucose 96 160 H 127 H 02/13/19 02/13/19 20:52 16:01 POC Glucose 169 H 141 H Phys Exam - Physical Examination Constitutional: NAD Respiratory: no wheezing, no rales, no rhonchi good air movement Cardiovascular: RRR, no significant murmur Gastrointestinal: soft, non-tender, no distention, positive bowel sounds Musculoskeletal: no edema Neurological: non-focal, moves all 4 limbs Psychiatric: normal affect Skin: no rash Dx/Plan (1) Nausea Code(s): R11.0 - NAUSEA Status: Acute (2) Bilateral pneumonia Code(s): J18.9 - PNEUMONIA, UNSPECIFIED ORGANISM Status: Acute (3) Anemia, normocytic normochromic Code(s): D64.9 - ANEMIA, UNSPECIFIED Status: Chronic (4) Anxiety and depression Code(s): F41.9 - ANXIETY DISORDER, UNSPECIFIED; F32.9 - MAJOR DEPRESSIVE DISORDER, SINGLE EPISODE, UNSPECIFIED Status: Chronic (5) CAD (coronary artery disease) Code(s): I25.10 - ATHSCL HEART DISEASE OF [place] CORONARY ARTERY W/O ANG PCTRS Status: Chronic (6) CKD (chronic kidney disease) stage 3, GFR 30-59 ml/min Code(s): N18.3 - CHRONIC KIDNEY DISEASE, STAGE 3 (MODERATE) Status: Chronic (7) Diabetes type 2, controlled Code(s): E11.9 - TYPE 2 DIABETES MELLITUS WITHOUT COMPLICATIONS Status: Chronic (8) Dyslipidemia Code(s): E78.5 - HYPERLIPIDEMIA, UNSPECIFIED Status: Chronic (9) GERD (gastroesophageal reflux disease) Code(s): K21.9 - GASTRO-ESOPHAGEAL REFLUX DISEASE WITHOUT ESOPHAGITIS Status: Chronic (10) Hypertension Code(s): I10 - ESSENTIAL (PRIMARY) HYPERTENSION Status: Chronic (11) Hypomagnesemia Code(s): E83.42 - HYPOMAGNESEMIA Status: Acute - Plan * Uncertain etiology of nausea currently, benign abd exam and abd sx are c/w GERD * Check bmp to ensure renal function is stable * * anemia new and stable - will check iron/vitamin studies * GERD sx - tums prn, first dose now * * only 1 bm this admission - schedule colace and prn miralax * * Pneumonia - has been double covered with ceftriaxone and doxycycline - xray yesterday does not show infiltrate and resp panel on admission showed rhinovirus. Will d/c doxycycline and antiticpate pt will not require abx after discharge * * discharge anticipated for tomorrow - pt is off oxygen, ambulating. the goal of today's interventions is to manage the new symptoms. * * Reviewed labs - low magnesium (1.1) - will replace with 2 grams IV magnesium, and recheck in AM. Normal ferritin and slightly low iron, normal vit b12 and folate. Will initiate oral iron replacement at once daily.
[2019-02-14] MEDS ORDERED: Polyethylene Glycol 3350 17 GM Packet PO SCH (14:00)
[2019-02-14] MEDS: Calcium Carbonate 500 MG ChewTAB PO PRN ×3 (14:04→21:35)
[2019-02-14 15:28] LABS: Anion Gap 13 mmol/L (10-20); BUN (Urea Nitrogen) 11 mg/dL (9.8-20.1); Calc. Creatinine Clearance 64 mL/min (70-130); Calcium 9.3 mg/dL (7.8-10.44); Carbon Dioxide 26 mmol/L (23-31); Chloride 107 mmol/L (98-107); Estimated GFR-MDRD 40; Glucose 88 mg/dL (80-115); Iron 30 ug/dL (50-170); Potassium 4.1 mmol/L (3.5-5.1); Sodium 142 mmol/L (136-145)
[2019-02-14] MEDS ORDERED: Magnesium 2 GM/NS 0.9% 100 ML 2 GM in Premix Bag 1 BAG IVPB SCH (17:15)
[2019-02-14] MEDS ORDERED: Magnesium 2 GM/50 ML 2 GM in Premix Bag 1 BAG IVPB SCH (17:45)
[2019-02-14] MEDS: ALPRAZolam 0.25 MG TAB PO PRN (20:42)
[2019-02-14] MEDS: Docusate 100 MG CAP PO SCH (20:42)
[2019-02-14] MEDS: Atorvastatin Calcium 40 MG TAB PO SCH (20:42)
[2019-02-14] MEDS: Acetaminophen/Codeine 30-300mg Tablet PO PRN (21:38)
[2019-02-15] MEDS: Budesonide 0.5 MG/2 ML NEB INH SCH (06:54)
[2019-02-15 06:59] LABS: #Eosinphils 0.2 thou/uL (0.0-0.7); #Lymphocytes 0.9 thou/uL (1.20-3.40); #Monocytes 0.2 thou/uL (0.11-0.59); #Neutrophils 4.5 thou/uL (1.40-6.50); %Basophils 0.2 % (0.0-1.0); %Eosinophils 2.6 % (0.0-10.0); %Lymphocytes 14.9 % (21.0-51.0); %Monocytes 4.1 % (0.0-10.0); %Neutrophils 78.2 % (42.0-75.0); Hemoglobin 8.9 g/dL (12.0-16.0); Mean Corpuscular Volume 88.4 fL (78.0-98.0); Platelet Count 152 thou/uL (130-400); RBC Distribution Width 15.2 % (11.5-14.5); Red Blood Cell (RBC) Count 2.98 mill/uL (4.20-5.40); White Blood Cell (WBC) Count 5.7 thou/uL (4.8-10.8)
[2019-02-15 07:18] LABS: Anion Gap 12 mmol/L (10-20); BUN (Urea Nitrogen) 11 mg/dL (9.8-20.1); Calc. Creatinine Clearance 77 mL/min (70-130); Calcium 9.2 mg/dL (7.8-10.44); Carbon Dioxide 24 mmol/L (23-31); Chloride 105 mmol/L (98-107); Estimated GFR-MDRD 49; Glucose 105 mg/dL (80-115); Magnesium 1.6 mg/dL (1.6-2.6); Potassium 3.8 mmol/L (3.5-5.1); Sodium 137 mmol/L (136-145)
[2019-02-15] MEDS: Montelukast Sodium 10 mg Tablet PO SCH (07:43)
[2019-02-15] MEDS: Losartan 25 MG TAB PO SCH (07:43)
[2019-02-15] MEDS: Alogliptin 25 MG TAB PO SCH (07:43)
[2019-02-15] MEDS: Aspirin 325 mg Enteric Coated Tablet PO SCH (07:44)
[2019-02-15] MEDS: Clopidogrel Bisulfate 75 MG TAB PO SCH (07:44)
[2019-02-15] MEDS: Saccharomyces boulardii 250 MG CAP PO SCH (07:44)
[2019-02-15] MEDS: Metoprolol Tartrate 25 MG TAB PO SCH (07:44)
[2019-02-15] MEDS: Escitalopram Oxalate 20 mg Tablet PO SCH (07:44)
[2019-02-15] MEDS: Docusate 100 MG CAP PO SCH (07:44)
[2019-02-15] MEDS: guaiFENesin ER 600 MG TAB PO SCH (07:45)
[2019-02-15] MEDS: cefTRIAXone\\ROCEPHIN 2 GM in Sodium Chloride 0.9% 100 ML IVPB SCH (07:48)
[2019-02-15] MEDS ORDERED: Ascorbic Acid 500 mg Chewable Tablet PO SCH (08:00)
[2019-02-15] MEDS ORDERED: Ferrous Gluconate 324 MG TAB PO SCH (08:00)
[2019-02-15 08:24] VITALS: BP 150/72; TEMP 98
--- NOTE | 2019-02-15 10:23 | DIS ---
DATE OF ADMISSION: 02/09/2019 DATE OF DISCHARGE: 02/15/2019 PRIMARY CARE PROVIDER: Dionna aSlazar DO DISPOSITION: Discharged home. FINAL DIAGNOSES: Pneumonia, diabetes mellitus type 2 with chronic kidney disease stage 3, and hypertension. DISCHARGE MEDICATIONS: 1. Omnicef 300 mg p.o. b.i.d. for a week. 2. Albuterol (ProAir HFA) 1 inhalation p.r.n. 3. Tylenol No.3 two tabs p.o. q.4 hours p.r.n. 4. Omeprazole 40 mg a day. 5. Singulair 10 mg a day. 6. Cozaar 50 mg a day. 7. Hydrochlorothiazide 25 mg a day. 8. Plavix 75 mg a day. 9. Aspirin 325 mg a day. 10. Metoprolol 50 mg a day. 11. Escitalopram 20 mg a day. 12. Lipitor 80 mg a day. ALLERGIES: NO KNOWN DRUG ALLERGIES. DIET: Diabetic. ACTIVITY: As tolerated. PENDING AT TIME OF DISCHARGE: Nothing. CODE STATUS: Full. HOSPITAL COURSE: The patient admitted to [facility] through [facility]. She had shortness of breath and cough for 2 weeks' duration. In the emergency room, she had a normal white cell count except for increased neutrophils. D-dimer was elevated. CT of the chest was negative for pulmonary emboli, but did show bilateral pneumonia. The patient had multiple complicating diseases, diabetes mellitus type 2 with chronic kidney disease stage 3, hypertension, and coronary artery disease, status post stent placement in the past. She was started on respiratory therapy and IV antibiotics. Her initial laboratory revealed sodium 138, potassium 3.8, BUN 9, and creatinine 1.27. White count 5.2 with neutrophilia and hemoglobin 9.7. The patient's respiratory testing revealed no significant viral etiology. Blood cultures are negative. The patient was continued on IV Rocephin. She improved during her hospital stay. At the current time, she is comfortable and ambulating without effort. Her echo was done, which revealed an EF of 60% to 65% with some LVH. No consults were done. No procedures were done. As mentioned before, the patient improved during her hospital stay. Her chemistries at the time of discharge were normal except for a creatinine of 1.11, consistent with her chronic kidney disease stage 3. Accu-Cheks were monitored during her hospital stay. She is currently being discharged on oral antibiotics to see Dr. Salazar in 1 week. Job ID: [id number]
== END 2019-02-15 10:45 | disposition home or self-care (01) | DRG 195 ==
LOC: ERS 19:09 → 2NO 20:55 → T4-A 02-12 18:46
PROVIDERS: ADMIT Internal Medicine; ATTEND Internal Medicine
DX: J12.89 Other viral pneumonia (principal); E11.22 Type 2 diabetes mellitus with diabetic chronic kidney disease; N18.3 Chronic kidney disease, stage 3 (moderate); I12.9 Hypertensive chronic kidney disease with stage 1 through stage 4 chronic kidney disease, or unspecified chronic kidney disease; I25.10 Atherosclerotic heart disease of native coronary artery without angina pectoris; D64.9 Anemia, unspecified; F41.9 Anxiety disorder, unspecified; F32.9 Major depressive disorder, single episode, unspecified; E78.5 Hyperlipidemia, unspecified; K21.9 Gastro-esophageal reflux disease without esophagitis; E83.42 Hypomagnesemia; G89.4 Chronic pain syndrome; E66.9 Obesity, unspecified; Z68.33 Body mass index [BMI] 33.0-33.9, adult; Z79.82 Long term (current) use of aspirin; Z79.02 Long term (current) use of antithrombotics/antiplatelets; Z79.899 Other long term (current) drug therapy; Z90.49 Acquired absence of other specified parts of digestive tract; Z88.0 Allergy status to penicillin; Z95.5 Presence of coronary angioplasty implant and graft; Z90.710 Acquired absence of both cervix and uterus; Z88.6 Allergy status to analgesic agent
CPT/HCPCS: 36415; 36416; 71046; 71275; 80048; 80053; 82607; 82728; 82746; 83540; 83605; 83735; 84484; 85025; 85379; 86140; 87040; 87633; 87899; 93005; 93306; 94640; 94760; 96361; 96365; J0456; J0696; J1650; J1815; J1956; J2405; J3475; J7050; J7620; J7626; Q0162; Q9966

== ENCOUNTER 2020-02-21 00:21 | Emergency (ER) | payer MEDICARE, MEDICAID ==
[2020-02-21 01:02] LABS: #Eosinphils 0.2 thou/uL (0.0-0.7); #Lymphocytes 1.8 thou/uL (1.20-3.40); #Monocytes 0.6 thou/uL (0.11-0.59); #Neutrophils 5.6 thou/uL (1.40-6.50); %Basophils 0.5 % (0.0-1.0); %Eosinophils 1.9 % (0.0-10.0); %Lymphocytes 22.2 % (21.0-51.0); %Monocytes 6.8 % (0.0-10.0); %Neutrophils 68.6 % (42.0-75.0); Hemoglobin 10.7 g/dL (12.0-16.0); Mean Corpuscular HGB CONC 35.9 g/dL (32.0-36.0); Mean Corpuscular Hemoglobin 30.3 pg (27.0-31.0); Mean Corpuscular Volume 84.4 fL (78.0-98.0); Mean Platelet Volume 8.8 fL (7.4-10.4); Platelet Count 185 thou/uL (130-400); RBC Distribution Width 16.5 % (11.5-14.5); Red Blood Cell (RBC) Count 3.52 mill/uL (4.20-5.40); White Blood Cell (WBC) Count 8.1 thou/uL (4.8-10.8)
[2020-02-21 01:19] LABS: ALT (SGPT) 19 U/L (8-55); AST (SGOT) 21 U/L (5-34); Albumin 3.7 g/dL (3.4-4.8); Alkaline Phosphatase 118 U/L (40-110); Anion Gap 13 mmol/L (10-20); BUN (Urea Nitrogen) 14 mg/dL (9.8-20.1); Bilirubin, Total 0.6 mg/dL (0.2-1.2); Calc. Creatinine Clearance 0 mL/min (70-130); Calcium 8.4 mg/dL (7.8-10.44); Carbon Dioxide 24 mmol/L (23-31); Chloride 102 mmol/L (98-107); Estimated GFR-MDRD 29; Globulin 3.2 g/dL (2.4-3.5); Glucose 374 mg/dL (80-115); Potassium 3.7 mmol/L (3.5-5.1); Protein, Total 6.9 g/dL (6.0-8.3); Sodium 135 mmol/L (136-145)
== END 2020-02-21 02:19 | disposition home or self-care (01) ==
LOC: ERS 00:21
DX: E11.65 Type 2 diabetes mellitus with hyperglycemia (principal); E78.5 Hyperlipidemia, unspecified; I10 Essential (primary) hypertension; F32.9 Major depressive disorder, single episode, unspecified; I25.10 Atherosclerotic heart disease of native coronary artery without angina pectoris; Z79.82 Long term (current) use of aspirin; Z79.899 Other long term (current) drug therapy
CPT/HCPCS: 36415; 36416; 80053; 85025; 96360; 96361

== ENCOUNTER 2020-03-22 10:30 | Outpatient (CLI) | payer MEDICARE, OTHER ==
--- NOTE | 2020-03-22 14:26 | MRI ---
MRI LUMBAR SPINE WITHOUT CONTRAST: 03/22/20 INDICATIONS: Incontinence of stool. Correlation made to MRI of lumbar spine from 2011 and intraoperative images of lumbar spine from 2012 . Interbody implant at L5-S1 with anterior screws placed in 2012 at L5-S1. FINDINGS: Lumbar vertebrae maintain normal height and alignment. There are postoperative changes at L5-S1 noted with metallic artifact present. Loss of disc space at L5-S1. The other disc spaces are preserved. L1-2: Mild disc bulge. No central canal or foraminal stenosis. L2-3: Annular fissure with moderate broad based disc bulge flattening the thecal sac. Mild facet and ligamentous hypertrophy. Posterior epidural fat is present. These changes result in mild central lyric l stenosis. L3-4: Moderate broad based disc bulge flattens the thecal sac. Moderate facet hypertrophy. Posterior epidural fat. These changes result in moderately severe central stenosis. No significant foraminal st enosis. L4-5: Mild diffuse disc bulge. Moderate facet hypertrophy. Mild central canal stenosis. No significan t foraminal stenosis. L5-S1: Postoperative changes. There is posterior spurring/osteophyte projecting to the left of midli ne and impinging on the anterior thecal sac and probably displacing the traversing left S1 nerve root . This appears to represent a large bridging osteophyte posteriorly on the left between L5 and S1. CT could better assess these osseous findings. IMPRESSION: 1. Postoperative changes at L5-S1. Evidence of a posterior osteophyte at the left of midline at this L5-S1 level abutting the anterior thecal sac and displacing the traversing left S1 nerve root. C onsider CT to further evaluate. 2. Disc bulges are seen producing central canal stenosis at L2-3 and L3-4 and L4-5 as described above. POS: AGW
== END 2020-03-22 10:31 | disposition home or self-care (01) ==
LOC: BICMRI 10:30
PROVIDERS: ATTEND Internal Medicine Gastroenterology
DX: R15.9 Full incontinence of feces (principal); M51.86 Other intervertebral disc disorders, lumbar region; M48.061 Spinal stenosis, lumbar region without neurogenic claudication; M25.78 Osteophyte, vertebrae; Z98.890 Other specified postprocedural states
CPT/HCPCS: 72148

== ENCOUNTER 2020-06-05 10:05 | Outpatient (CLI) | payer MEDICARE, OTHER ==
--- NOTE | 2020-06-05 11:56 | MRI ---
MRI BRAIN NONCONTRAST: DATE: 06/05/2020 HISTORY: 69 year old female with postconcussion [id number], closed head injury, subsequent encounter This was ordered as with and without contrast, but because of GFR 32, no gadolinium based contrast ag ent was given. FINDINGS: There is no obstructive hydrocephalus. There is no midline shift or any other evidence of mass effect . There is no extra-axial fluid collection. There is a moderate degree of T2-hyperintensities in the cerebral white matter consistent with chronic ischemic white matter changes due to microvascular atherosclerosis. There is no evidence of recent hemorrhage or restricted diffusion. IMPRESSION: 1) moderate chronic ischemic white matter changes. 2) otherwise negative
== END 2020-06-05 10:06 | disposition home or self-care (01) ==
LOC: BICMRI 10:05
PROVIDERS: ATTEND Family Medicine
DX: S09.90XD Unspecified injury of head, subsequent encounter (principal); F07.81 Postconcussional syndrome; W10.8XXD Fall (on) (from) other stairs and steps, subsequent encounter; G93.89 Other specified disorders of brain
CPT/HCPCS: 70551; 82565

== ENCOUNTER 2020-08-25 20:25 | Inpatient (IN) | payer MEDICARE, MEDICAID, OTHER ==
[2020-08-25 21:14] VITALS: BMI 31.1
[2020-08-25] MEDS ORDERED: Acetaminophen 650 MG Suppository PR PRN (21:27)
[2020-08-25] MEDS ORDERED: Acetaminophen 325 MG TAB PO PRN (21:27)
[2020-08-25] MEDS: HYDROcodone/Acetaminophen 7.5/325 mg Tablet PO PRN (21:37)
[2020-08-25] MEDS ORDERED: Dextrose 50% Abboject 50 ML SYRINGE SLOW IVP PRN (21:42)
[2020-08-25] MEDS ORDERED: HumaLOG 300 UNITS/3 ML VIAL SC PRN (21:42)
[2020-08-25] MEDS ORDERED: Dextrose 5% in Water 1,000 ML IV PRN (21:42)
[2020-08-25] MEDS ORDERED: Morphine 2 MG/ML VIAL SLOW IVP SCH (23:00)
[2020-08-25] MEDS: Clindamycin/D5W 600 MG in Premix Bag 1 BAG IVPB SCH (23:06)
--- NOTE | 2020-08-26 02:06 | PDOC.HHP ---
Hospitalist HPI - History of Present Illness Left submandibular swelling/pain History of Present Illness: Patient presents with a 3 day history of increasing pain and swelling to the left lower mandible. She had significantly worsening swelling and redness today extending down the left anterior neck and with redness/swelling of her lower lip. Seen initially at [place] [facility] where she had a CT of the neck done and was started on Clindamycin for a periapical abscess/facial cellulitis. For her pain she was given Dilaudid 0.5 mg IV x 1. CT Neck showed significant dental caries in the lower left second bicuspid with evidence of periapical abscess and soft tissue swelling anterior to the mandible. Currently the patient is complaining of significant pain, 8/10 in severity. States the swelling seems to have gotten worse since arriving to the ED. She received one dose of Clindamycin in the ED prior to transfer. Due to poor kidney function has limited pain meds she can be given and reports an allergy to Tramadol. ROS: No difficulty with her swallowing. No tongue swelling or pain. Denies any trouble with her breathing. She denies having any recent fevers, chills or sweats. Reports having issues with vomiting 2 weeks ago. States she has lost 48 lbs since 05/2020. She had sustained severe injuries after falling down the stairs. States she broke her nose and cheek bones. Sustained an injury to her neck and required c-spine surgery which was done in May 2020. Since then her appetite has been extremely low. PAST MEDICAL HISTORY: 1. Type 2 DM. 2. CAD. 3. Hypertension. 4. History of HF. 5. Depression. 6. Hyperlipidemia. 7. CKD. Stage III PAST SURGICAL HISTORY: 1. Cardiac stent x 1. 2. Back surgery. 3. Anterior cervical diskectomy and fusion, 06/06/2020. 4. Hysterectomy. 5. Appendectomy. SOCIAL HISTORY: Denies any tobacco use, alcohol consumption or drug use. FAMILY HISTORY: Noncontributory. ALLERGIES: Penicillin and Tramadol CURRENT MEDICATIONS: Aspirin. Hydrochlorothiazide. Omeprazole. Escitalopram. Myrbetriq. Soliqua. Lyrica. Rosuvastatin. Metoprolol. Ezetimibe. Hospitalist ROS - Medication Medications: Active Medications Generic Name Dose Route Start Last Admin Trade Name Freq PRN Reason Stop Dose Admin Hydrocodone Bitart/Acetaminophen 1 tab 08/25/20 21:26 08/25/20 21:37 Hydrocodone/Acetaminophen 7.5/325 Mg Tablet PO 1 tab Q4H PRN Administration Moderate Pain (4-6) Clindamycin Phosphate/Dextrose 50 mls @ 100 mls/hr 08/25/20 23:59 08/25/20 23:06 600 mg/ Device IVPB 50 mls [id number] RUBÉN Administration - Exam General Appearance: NAD (appears to be in some discomfort but no distress) General - other findings: VS: Temp 98.3, HR 69, RR 18, O2 sat 94% on RA, BP 129/65. ENT - other findings: Swelling to left submandibular region, erythema and lower lip swelling Neck - other findings: left anterior neck with redness/swelling and area of subcutaenous firmness Heart: RRR, normal peripheral pulses Respiratory: CTAB, no wheezes, no rales, normal chest expansion, no tachypnea, normal percussion Gastrointestinal: soft, non-tender, non-distended, normal bowel sounds, no guarding, no rigidity Extremities: no cyanosis, no clubbing, no edema Skin: normal turgor, no rashes Neurological: cranial nerve grossly intact, normal sensation to touch Musculoskeletal: normal tone, normal strength, no muscle wasting Psychiatric: normal affect, normal behavior, A&O x 3 Hospitalist H&P A/P - Problem (1) Periapical abscess Code(s): K04.7 - PERIAPICAL ABSCESS WITHOUT SINUS Status: Acute Assessment and Plan: Continue Clindamycin. Consult Oral surgery, ?abscess/tooth extraction. NPO at midnight. S/p CT neck imaging without contrast. Day team to decide on re-imaging with contrast to better assess for submandibular abscess. (2) Localized swelling, mass and lump, neck Code(s): R22.1 - LOCALIZED SWELLING, MASS AND LUMP, NECK Status: Acute Assessment and Plan: As above. Currently no symptoms concerning for airway compromise. (3) CKD (chronic kidney disease) stage 3, GFR 30-59 ml/min Code(s): N18.3 - CHRONIC KIDNEY DISEASE, STAGE 3 (MODERATE) * DO NOT USE * Status: Chronic Assessment and Plan: Monitor renal function. Very gentle hydration, given reported hx of HF. (4) Diabetes type 2, controlled Code(s): E11.9 - TYPE 2 DIABETES MELLITUS WITHOUT COMPLICATIONS Status: Chronic Assessment and Plan: Monitor glucose. ISS initiated. (5) Hypertension Code(s): I10 - ESSENTIAL (PRIMARY) HYPERTENSION Status: Chronic Assessment and Plan: Monitor BP. Resume home meds once verified. (6) GERD (gastroesophageal reflux disease) Code(s): K21.9 - GASTRO-ESOPHAGEAL REFLUX DISEASE WITHOUT ESOPHAGITIS Status: Chronic Assessment and Plan: Continue famotidine 20 mg BID. (7) CAD (coronary artery disease) Code(s): I25.10 - ATHSCL HEART DISEASE OF [place] CORONARY ARTERY W/O ANG PCTRS Status: Chronic (8) Anxiety and depression Code(s): F41.9 - ANXIETY DISORDER, UNSPECIFIED; F32.9 - MAJOR DEPRESSIVE DIS ORDER, SINGLE EPISODE, UNSPECIFIED Status: Chronic Assessment and Plan: Resume home meds once verified. 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 (10) Dyslipidemia Code(s): E78.5 - HYPERLIPIDEMIA, UNSPECIFIED Status: Chronic Assessment and Plan: Resume home meds once verified. - Plan Plan: CODE STATUS FULL Surrogate decision maker is her : Gary Cage
[2020-08-26] MEDS: HYDROcodone/Acetaminophen 7.5/325 mg Tablet PO PRN ×3 (05:12→20:43)
[2020-08-26 05:56] LABS: #Basophils 0.1 thou/uL (0.0-0.2); #Eosinphils 0.1 thou/uL (0.0-0.7); #Lymphocytes 1.4 thou/uL (1.20-3.40); #Monocytes 0.5 thou/uL (0.11-0.59); #Neutrophils 5.4 thou/uL (1.40-6.50); %Basophils 1.2 % (0.0-1.0); %Eosinophils 1.4 % (0.0-10.0); %Lymphocytes 18.7 % (21.0-51.0); %Neutrophils 72.7 % (42.0-75.0); Hemoglobin 11.3 g/dL (12.0-16.0); Mean Corpuscular HGB CONC 34.7 g/dL (32.0-36.0); Mean Corpuscular Volume 83.4 fL (78.0-98.0); Mean Platelet Volume 9.5 fL (7.4-10.4); Platelet Count 175 thou/uL (130-400); RBC Distribution Width 15.3 % (11.5-14.5); White Blood Cell (WBC) Count 7.4 thou/uL (4.8-10.8)
[2020-08-26 06:22] LABS: Anion Gap 12 mmol/L (10-20); BUN (Urea Nitrogen) 13 mg/dL (9.8-20.1); Calc. Creatinine Clearance 58 mL/min (70-130); Calcium 9.5 mg/dL (7.8-10.44); Carbon Dioxide 29 mmol/L (23-31); Chloride 97 mmol/L (98-107); Estimated GFR-MDRD 40; Glucose 160 mg/dL (80-115); Potassium 3.4 mmol/L (3.5-5.1); Sodium 135 mmol/L (136-145)
[2020-08-26] MEDS: Clindamycin/D5W 600 MG in Premix Bag 1 BAG IVPB SCH ×3 (08:16→23:56)
[2020-08-26] MEDS: Famotidine 20 MG TAB PO SCH (08:18)
--- NOTE | 2020-08-26 11:15 | CON ---
DATE OF CONSULTATION: 08/26/2020 HISTORY OF PRESENT ILLNESS: This is a 70-year-old female who reports approximately 2-week history of lower left tooth pain with a 4-day history of increasing pain and swelling that led her to the [facility] due to uncontrolled pain where a CT of the neck revealed concern for odontogenic abscess which then the patient was transferred to [facility] in [place] for further care. Currently, the patient says her pain is better controlled but still severe tenderness to touch on the face. No improvement in her swelling or overall symptoms she reports since her hospital admission. REVIEW OF SYMPTOMS: The patient reports she is tolerating p.o. liquid intake well. There is some soreness on swallowing, but no difficulty or obstruction of her airway. Denies any difficulty breathing. Reports generalized left lower jaw, neck pain and tenderness. Otherwise, review of symptoms within normal limits. PAST MEDICAL HISTORY: 1. Type 2 diabetes. 2. Hypertension. 3. Coronary artery disease. 4. Heart failure. 5. Depression. 6. Hyperlipidemia. 7. Stage 3 CKD. PAST SURGICAL HISTORY: 1. Cardiac stent. 2. Back surgery. 3. Cervical diskectomy. 4. Hysterectomy. 5. Appendectomy. SOCIAL HISTORY: Negative for tobacco, alcohol, or recreational drug use. ALLERGIES: PENICILLIN, TRAMADOL. MEDICATIONS: 1. Tylenol. 2. Fackler. 3. Clindamycin. 4. Pepcid. 5. Glucagon. 6. Humalog. LABORATORY DATA: White blood cell count 7.4, hemoglobin 11.3, hematocrit 32.5, platelet count 175. Chemistry; sodium 135, potassium 3.4, chloride 97, carbon dioxide 29, anion gap 12, BUN 13, creatinine 1.32, GFR 40, glucose 160. PHYSICAL EXAMINATION: GENERAL: The patient is lying in bed, no acute distress, resting comfortably. Awake, alert, oriented. HEENT: Pupils equally round and reactive to light. Extraocular movements intact. Visual acuity grossly intact. Ears and nose within normal limits. [id number] edema, erythema, and tenderness to palpation along the buccal aspect of the left anterior mandible extending just below the inferior border. There is tenderness to palpation and erythema in the submandibular region, but no significant induration or edema appreciated. Mandibular range of motion within normal limits. Tongue, full range of motion. Floor of mouth soft. Poor oral hygiene. Caries present on tooth #20 with tenderness to palpation and vestibular edema and tenderness to palpation in the associated vestibule of the mouth. RADIOGRAPHIC EXAM: CT of the neck reveals a large periapical radiolucency associated with tooth #20 with caries extending into the pulp of the tooth with associated left facial edema. ASSESSMENT: This is a 70-year-old female with odontogenic abscess involving tooth #20. PLAN: The patient will be taken to the operating room for extraction of tooth #20 and incision and drainage of abscess. The patient is to remained n.p.o. until that time. Recommend continuing supportive therapy and IV clindamycin. After the procedure, recommend adding chlorhexidine mouth rinse 15 mL swish and spit b.i.d. The patient can have a soft diet as tolerated, chewing only on the right side after the procedure. Recommend diligent oral hygiene but not brushing over the extraction site itself after the procedure, and with a productive procedure and pain control, the patient can likely be discharged tomorrow. Follow up in the Oral surgery Clinic next week. Job ID: [id number]
[2020-08-26 12:11] LABS: SARS-CoV-2 MS2 Positive; SARS-CoV-2 N Gene Negative; SARS-CoV-2 S Gene Negative; SARS-CoV-2 by NAA Not Detected (NotDetected); SARS-CoV-2 orf1ab Negative
[2020-08-26] MEDS ORDERED: Lidocaine 1% PF 5 ML VIAL ONE (12:48)
[2020-08-26] MEDS ORDERED: EPHEDRINE 25 MG/5 ML SYRINGE ONE (12:48)
[2020-08-26] MEDS ORDERED: Glycopyrrolate 0.2 MG/ML 5 ML SYRINGE ONE (12:48)
[2020-08-26] MEDS ORDERED: PROPOFOL 200 MG/20 ML VIAL ONE (12:48)
[2020-08-26] MEDS ORDERED: Ondansetron PF 4 MG/2 ML Vial ONE (12:48)
[2020-08-26] MEDS ORDERED: Rocuronium Bromide 10 MG/ML (10ML VIAL) ONE (12:48)
--- NOTE | 2020-08-26 13:27 | PDOC.HOSPP ---
- Subjective Encounter Date: 08/26/20 Encounter Time: 11:00 Subjective: Patient seen for follow-up regarding odontogenic abscess. Reports pain over the left side of mandible. - Objective Vital Signs & Weight: Vital Signs (12 hours) Temp Pulse Resp BP BP Pulse Ox 08/26/20 12:00 97.9 F 76 16 122/71 97 08/26/20 08:30 94 L 08/26/20 07:20 97.4 F L 64 16 97/60 94 L 08/26/20 04:00 98.5 F 70 18 110/69 95 Weight Admit Weight 197 lb Weight 198 lb 7 oz I&O: 08/25/20 08/26/20 08/27/20 06:59 06:59 06:59 Intake Total 300 Balance 300 Result Diagrams: 08/26/20 05:34 08/26/20 05:34 Additional Labs: Accuchecks 08/26/20 08/25/20 12:19 22:20 POC Glucose 171 H 164 H I reviewed patient's labs and MAR Hospitalist ROS - Review of Systems ENT: reports: mouth pain Cardiovascular: denies: chest pain, palpitations, orthopnea, paroxysmal noc. dyspnea, edema, light headedness Gastrointestinal: denies: nausea, vomiting, abdominal pain, diarrhea, constipation, melena, hematochezia - Medication Medications: Active Medications Generic Name Dose Route Start Last Admin Trade Name Freq PRN Reason Stop Dose Admin Hydrocodone Bitart/Acetaminophen 1 tab 08/25/20 21:26 08/26/20 10:03 Hydrocodone/Acetaminophen 7.5/325 Mg Tablet PO 1 tab Q4H PRN Administration Moderate Pain (4-6) Famotidine 20 mg 08/26/20 09:00 08/26/20 08:18 Famotidine 20 Mg Tab PO 20 mg DAILY RUBÉN Administration Clindamycin Phosphate/Dextrose 50 mls @ 100 mls/hr 08/25/20 23:59 08/26/20 08:16 600 mg/ Device IVPB 50 mls 0800,1600,2359 RUBÉN Administration - Exam General - other findings: Obese Eye: anicteric sclera ENT - other findings: Swelling and tenderness over the left mandible Neck: supple Heart: RRR Respiratory: CTAB Gastrointestinal: soft, non-tender Skin: no rashes Neurological: cranial nerve grossly intact Psychiatric: normal affect, normal behavior Hosp A/P - Plan -Assessment/plan (1) Periapical abscess Code(s): K04.7 - PERIAPICAL ABSCESS WITHOUT SINUS Status: Acute Assessment and Plan: Continue IV Clindamycin. Pt to go for surgery. (2) hyponatremia Status: Acute Assessment and Plan: Mild, likely asymptomatic (3) hypokalemia Status: Acute Assessment and Plan: Replace potassium (4) CKD (chronic kidney disease) stage 3, GFR 30-59 ml/min Code(s): N18.3 - CHRONIC KIDNEY DISEASE, STAGE 3 (MODERATE) * DO NOT USE * Status: Chronic Assessment and Plan: Stable (5) Hypertension Code(s): I10 - ESSENTIAL (PRIMARY) HYPERTENSION Status: Chronic Assessment and Plan: Controlled and stable (6) Diabetes type 2, controlled Code(s): E11.9 - TYPE 2 DIABETES MELLITUS WITHOUT COMPLICATIONS Status: Chronic Assessment and Plan: Continue Accu-Cheks and insulin sliding scale (7) CAD (coronary artery disease) Code(s): I25.10 - ATHSCL HEART DISEASE OF [place] CORONARY ARTERY W/O ANG PCTRS Status: Chronic Assessment and Plan: Stable (8) GERD (gastroesophageal reflux disease) Code(s): K21.9 - GASTRO-ESOPHAGEAL REFLUX DISEASE WITHOUT ESOPHAGITIS Status: Chronic Assessment and Plan: Stable (9) Anxiety and depression Code(s): F41.9 - ANXIETY DISORDER, UNSPECIFIED; F32.9 - MAJOR DEPRESSIVE DISORDER, SINGLE EPISODE, UNSPECIFIED Status: Chronic Assessment and Plan: Mild and stable (10) Dyslipidemia Code(s): E78.5 - HYPERLIPIDEMIA, UNSPECIFIED Status: Chronic Assessment and Plan: Stable
[2020-08-26] MEDS ORDERED: Chlorhexidine Gluconate 15 ML UDCUP SSP ONE (13:29)
[2020-08-26] MEDS ORDERED: Lidocaine 1% w/Epinephrine 1:100K 20 ML VIAL ONE (13:29)
[2020-08-26] MEDS ORDERED: Fentanyl 100 MCG/2 ML VIAL ONE (13:42)
[2020-08-26] MEDS ORDERED: HYDROmorphone 0.5 MG/0.5 ML SYRINGE ONE (13:42)
[2020-08-26] MEDS ORDERED: Potassium Chloride 10 MEQ in Premix Bag 1 BAG IVPB SCH ×2 (14:00→14:15)
[2020-08-26] MEDS ORDERED: SUGAMMADEX SODIUM 500 MG/5 ML VIAL ONE (14:30)
[2020-08-26] MEDS ORDERED: Promethazine HCl 25 MG/ML VIAL IM PRN (14:51)
[2020-08-26] MEDS ORDERED: Promethazine HCl 25 MG/ML VIAL SLOW IVP PRN (14:51)
[2020-08-26] MEDS ORDERED: Ondansetron HCl/PF 4 MG/2 ML Vial IVP PRN (14:51)
[2020-08-26] MEDS ORDERED: PACU-Morphine 4MG/ML VIAL SLOW IVP PRN (14:51)
[2020-08-26] MEDS ORDERED: HYDROmorphone 2 MG/ML VIAL SLOW IVP PRN (14:51)
--- NOTE | 2020-08-26 18:21 | OP ---
DATE OF PROCEDURE: 08/26/2020 PREOPERATIVE DIAGNOSES: 1. Odontogenic abscess of tooth #20. 2. Dental caries, tooth #20. POSTOPERATIVE DIAGNOSES: 1. Odontogenic abscess of tooth #20. 2. Dental caries, tooth #20. PROCEDURES PERFORMED: 1. Simple extraction of tooth #20. 2. Incision and drainage of left vestibular abscess in the mandible. ANESTHESIA: General endotracheal anesthesia. TIEING MACHINE OPERATOR: Dr. Maldonado. INDICATIONS FOR PROCEDURE: This is a 70-year-old female with a 4-day history of worsening facial swelling and tooth and jaw pain, which CT of the neck at an outside ER revealed odontogenic abscess involving tooth #20, for which she was transferred to [facility] for operative intervention and supportive therapy. DESCRIPTION OF PROCEDURE: The patient was met in the preoperative holding area. Risks, benefits, and alternatives of procedure were discussed in detail. Questions were sought and answered. Informed consent was obtained. The patient was transferred to operating room by anesthesia nursing into the OR table, where a safety belt was secured, standard ASA monitors were attached, and the patient was noted to have stable vital signs. IV induction by anesthesia with oral endotracheal intubation x1 without complication using a Glidescope was performed. The endotracheal tube was secured in a standard head wrap fashion. The patient was draped and a time-out was performed. We began the procedure by thoroughly suctioned the oropharynx. Moistened Ray-Jacquelyn throat pack was placed. Approximately 8 mL of 1% Xylocaine with 1:100,000 epinephrine was administered as a left inferior alveolar nerve block, lingual nerve block, buccal nerve block, and local infiltration in the left mandibular vestibule. A 1-51 forceps was used for simple extraction of tooth #20 with purulence from the socket, which was cultured. A diligent curettage of the granulation tissue at the apex of tooth #20 socket was performed. Then, a 15 blade was used for a 1 cm horizontal incision below the mucogingival junction and the left mandibular vestibule with blunt subperiosteal dissection, revealing mild purulence from the wound. Copious irrigation with normal saline was performed. The patient's oropharynx was thoroughly suctioned. A moistened Ray-Jacquelyn throat pack was removed. A gauze pack was placed for hemostasis and this concluded our procedure. The patient was extubated in the room and returned to the PACU in stable condition. BLOOD LOSS: 10 mL. FLUIDS: See Anesthesia records. DRAINS: None. SPECIMENS: Culture of left mandibular wound. COUNTS: Needle and sponge count verified as correct. COMPLICATIONS: None. Job ID: [id number]
[2020-08-26] MEDS: Chlorhexidine Gluconate 15 ML UDCUP SSP SCH (20:43)
[2020-08-26] MEDS ORDERED: FLU VACC QS2020-21(65YR UP)/PF 240 MCG/0.7 ML SYRINGE IM ONE (21:00)
[2020-08-26] MEDS ORDERED: Fentanyl 100 MCG/2 ML VIAL SLOW IVP PRN (23:25)
[2020-08-27] MEDS ORDERED: Ondansetron PF 4 MG/2 ML Vial IVP PRN (00:15)
[2020-08-27] MEDS: HYDROcodone/Acetaminophen 7.5/325 mg Tablet PO PRN ×3 (03:56→20:23)
[2020-08-27] MEDS: Calcium Carbonate 500 MG ChewTAB PO PRN (03:56)
[2020-08-27] MEDS: Clindamycin/D5W 600 MG in Premix Bag 1 BAG IVPB SCH ×3 (09:44→23:00)
[2020-08-27] MEDS: Famotidine 20 MG TAB PO SCH (09:45)
[2020-08-27] MEDS: Chlorhexidine Gluconate 15 ML UDCUP SSP SCH ×2 (09:45→20:24)
[2020-08-27] MEDS: HumaLOG 300 UNITS/3 ML VIAL SC PRN ×2 (12:35→18:06)
--- NOTE | 2020-08-27 15:36 | PDOC.HOSPP ---
- Subjective Encounter Date: 08/27/20 Encounter Time: 15:00 Subjective: Patient seen for follow-up regarding odontogenic abscess. Reports pain is better. Has occasional difficulty ambulating. - Objective Vital Signs & Weight: Vital Signs (12 hours) Temp Pulse Resp BP Pulse Ox 08/27/20 11:39 97.8 F 68 18 104/63 94 L 08/27/20 08:00 94 L 08/27/20 07:16 98.4 F 63 16 105/61 97 08/27/20 04:00 97.7 F 77 18 117/69 96 Weight Admit Weight 197 lb Weight 198 lb 7 oz I&O: 08/26/20 08/27/20 08/28/20 06:59 06:59 06:59 Intake Total 300 860 Balance 300 860 Result Diagrams: 08/26/20 05:34 08/26/20 05:34 Additional Labs: Accuchecks 08/27/20 08/27/20 08/26/20 11:42 04:13 20:42 POC Glucose 184 H 148 H 159 H 08/26/20 15:46 POC Glucose 191 H I reviewed patient's labs and MAR Hospitalist ROS - Review of Systems ENT: reports: mouth pain Respiratory: denies: cough, dry, shortness of breath, hemoptysis, SOB with excertion, pleuritic pain, sputum, wheezing Cardiovascular: denies: chest pain, palpitations, orthopnea, paroxysmal noc. dyspnea, edema, light headedness - Medication Medications: Active Medications Generic Name Dose Route Start Last Admin Trade Name Freq PRN Reason Stop Dose Admin Hydrocodone Bitart/Acetaminophen 1 tab 08/25/20 21:26 08/27/20 12:31 Hydrocodone/Acetaminophen 7.5/325 Mg Tablet PO 1 tab Q4H PRN Administration Moderate Pain (4-6) Calcium Carbonate 1,000 mg 08/27/20 03:49 08/27/20 03:56 Calcium Carbonate 500 Mg Chewtab PO 1,000 mg Q4H PRN Administration Heartburn or Indigestion Chlorhexidine Gluconate 15 ml 08/26/20 21:00 08/27/20 09:45 Chlorhexidine Gluconate 15 Ml Udcup SSP 15 ml BID RUBÉN Administration Famotidine 20 mg 08/26/20 09:00 08/27/20 09:45 Famotidine 20 Mg Tab PO 20 mg DAILY RUBÉN Administration Fentanyl 50 mcg 08/26/20 23:25 08/26/20 23:51 Fentanyl 100 Mcg/2 Ml Vial SLOW IVP 08/29/20 23:26 50 mcg ONE PRN Administration Breakthrough Pain Clindamycin Phosphate/Dextrose 50 mls @ 100 mls/hr 08/25/20 23:59 08/27/20 09:44 600 mg/ Device IVPB 50 mls 0800,1600,2359 RUBÉN Administration Insulin Human Lispro 0 units 08/25/20 21:42 08/27/20 12:35 Humalog 300 Units/3 Ml Vial SC 2 unit .MILD SLIDING SCALE PRN Administration Mild Correctional Scale - Exam General Appearance: awake alert Eye: scleral icterus ENT: normocephalic atraumatic Neck: supple Heart: RRR Respiratory: CTAB Gastrointestinal: soft, non-tender Extremities: no cyanosis Skin: no rashes Psychiatric: normal affect Hosp A/P - Plan -Assessment/plan (1) Periapical abscess Code(s): K04.7 - PERIAPICAL ABSCESS WITHOUT SINUS Status: Acute Assessment and Plan: Continue IV Clindamycin. Status post incision and drainage by OMFS. (2) hyponatremia Status: Acute Assessment and Plan: Check a.m. labs (3) hypokalemia Status: Acute Assessment and Plan: Potassium was replaced yesterday, check a.m. labs (4) CKD (chronic kidney disease) stage 3, GFR 30-59 ml/min Code(s): N18.3 - CHRONIC KIDNEY DISEASE, STAGE 3 (MODERATE) * DO NOT USE * Status: Chronic Assessment and Plan: Stable (5) Hypertension Code(s): I10 - ESSENTIAL (PRIMARY) HYPERTENSION Status: Chronic Assessment and Plan: Controlled and stable (6) Diabetes type 2, controlled Code(s): E11.9 - TYPE 2 DIABETES MELLITUS WITHOUT COMPLICATIONS Status: Chronic Assessment and Plan: Continue Accu-Cheks and insulin sliding scale (7) CAD (coronary artery disease) Code(s): I25.10 - ATHSCL HEART DISEASE OF [place] CORONARY ARTERY W/O ANG PCTRS Status: Chronic Assessment and Plan: Stable (8) GERD (gastroesophageal reflux disease) Code(s): K21.9 - GASTRO-ESOPHAGEAL REFLUX DISEASE WITHOUT ESOPHAGITIS Status: Chronic Assessment and Plan: Stable (9) Anxiety and depression Code(s): F41.9 - ANXIETY DISORDER, UNSPECIFIED; F32.9 - MAJOR DEPRESSIVE DISORDER, SINGLE EPISODE, UNSPECIFIED Status: Chronic Assessment and Plan: Mild and stable (10) Dyslipidemia Code(s): E78.5 - HYPERLIPIDEMIA, UNSPECIFIED Status: Chronic Assessment and Plan: Stable Patient needs PT/OT eval and treatment. Disposition depending on the recommendation. Discharge with clindamycin 300 mg every 6 hours for 5 days and Peridex rinse 15 mils swish and spit 2 times a day for 1 week.
[2020-08-27] MEDS ORDERED: Fentanyl 100 MCG/2 ML VIAL SLOW IVP PRN (22:51)
[2020-08-28 06:00] LABS: #Eosinphils 0.2 thou/uL (0.0-0.7); #Lymphocytes 1.4 thou/uL (1.20-3.40); #Monocytes 0.3 thou/uL (0.11-0.59); #Neutrophils 2.6 thou/uL (1.40-6.50); %Basophils 0.4 % (0.0-1.0); %Eosinophils 5.4 % (0.0-10.0); %Lymphocytes 30.3 % (21.0-51.0); %Monocytes 5.8 % (0.0-10.0); %Neutrophils 58.1 % (42.0-75.0); Hemoglobin 10.7 g/dL (12.0-16.0); Mean Corpuscular HGB CONC 34.7 g/dL (32.0-36.0); Mean Corpuscular Hemoglobin 29.2 pg (27.0-31.0); Mean Corpuscular Volume 84.1 fL (78.0-98.0); Mean Platelet Volume 9.4 fL (7.4-10.4); Platelet Count 172 thou/uL (130-400); RBC Distribution Width 15.4 % (11.5-14.5); Red Blood Cell (RBC) Count 3.67 mill/uL (4.20-5.40); White Blood Cell (WBC) Count 4.5 thou/uL (4.8-10.8)
[2020-08-28 06:23] LABS: Anion Gap 14 mmol/L (10-20); BUN (Urea Nitrogen) 10 mg/dL (9.8-20.1); Calc. Creatinine Clearance 62 mL/min (70-130); Calcium 9.1 mg/dL (7.8-10.44); Carbon Dioxide 25 mmol/L (23-31); Chloride 102 mmol/L (98-107); Estimated GFR-MDRD 43; Glucose 154 mg/dL (80-115); Potassium 3.5 mmol/L (3.5-5.1); Sodium 137 mmol/L (136-145)
[2020-08-28] MEDS: Clindamycin/D5W 600 MG in Premix Bag 1 BAG IVPB SCH ×3 (09:42→23:37)
[2020-08-28] MEDS: Chlorhexidine Gluconate 15 ML UDCUP SSP SCH ×2 (09:43→21:14)
[2020-08-28] MEDS: Famotidine 20 MG TAB PO SCH (09:43)
--- NOTE | 2020-08-28 14:13 | PDOC.HOSPP ---
- Subjective Encounter Date: 08/28/20 Encounter Time: 10:00 Subjective: Patient seen for follow-up foot odontogenic abscess. Feels better today, but still not ambulating well. - Objective Vital Signs & Weight: Vital Signs (12 hours) Temp Pulse Resp BP Pulse Ox 08/28/20 11:00 97.8 F 68 20 129/81 92 L 08/28/20 07:48 95 08/28/20 07:39 97.9 F 63 20 101/55 L 95 08/28/20 04:00 97.7 F 63 18 113/70 95 Weight Admit Weight 197 lb Weight 198 lb 7 oz I&O: 08/27/20 08/28/20 08/29/20 06:59 06:59 06:59 Intake Total 860 350 Balance 860 350 Result Diagrams: 08/28/20 05:35 08/28/20 05:35 Additional Labs: Accuchecks 08/28/20 08/28/20 08/27/20 12:22 04:54 20:30 POC Glucose 180 H 151 H 174 H 08/27/20 08/26/20 16:15 05:00 POC Glucose 217 H 156 H I reviewed patient's labs and MAR Hospitalist ROS - Review of Systems Constitutional: reports: weakness. denies: fever, chills, sweats, malaise ENT: reports: mouth pain Cardiovascular: denies: chest pain, palpitations, orthopnea, paroxysmal noc. dyspnea, edema, light headedness Gastrointestinal: denies: nausea, vomiting, abdominal pain, diarrhea, constipation, melena, hematochezia - Medication Medications: Active Medications Generic Name Dose Route Start Last Admin Trade Name Ronq PRN Reason Stop Dose Admin Hydrocodone Bitart/Acetaminophen 1 tab 08/25/20 21:26 08/27/20 20:23 Hydrocodone/Acetaminophen 7.5/325 Mg Tablet PO 1 tab Q4H PRN Administration Moderate Pain (4-6) Calcium Carbonate 1,000 mg 08/27/20 03:49 08/27/20 03:56 Calcium Carbonate 500 Mg Chewtab PO 1,000 mg Q4H PRN Administration Heartburn or Indigestion Chlorhexidine Gluconate 15 ml 08/26/20 21:00 08/28/20 09:43 Chlorhexidine Gluconate 15 Ml Udcup SSP 15 ml BID RUBÉN Administration Famotidine 20 mg 10/17/20 09:00 08/28/20 09:43 Famotidine 20 Mg Tab PO 20 mg DAILY RUBÉN Administration Clindamycin Phosphate/Dextrose 50 mls @ 100 mls/hr 08/25/20 23:59 08/28/20 09:42 600 mg/ Device IVPB 50 mls 0800,1600,2359 RUBÉN Administration - Exam General Appearance: awake alert Eye: anicteric sclera ENT: moist mucosa Neck: supple Heart: RRR Respiratory: CTAB Gastrointestinal: soft Extremities: no cyanosis Skin: no rashes Psychiatric: normal affect, normal behavior Hosp A/P - Plan -Assessment/plan (1) Periapical abscess Code(s): K04.7 - PERIAPICAL ABSCESS WITHOUT SINUS Status: Acute Assessment and Plan: Continue IV Clindamycin. Status post incision and drainage by OMFS. (2) CKD (chronic kidney disease) stage 3, GFR 30-59 ml/min Code(s): N18.3 - CHRONIC KIDNEY DISEASE, STAGE 3 (MODERATE) * DO NOT USE * S tatus: Chronic Assessment and Plan: Stable (3) Hypertension Code(s): I10 - ESSENTIAL (PRIMARY) HYPERTENSION Status: Chronic Assessment and Plan: Controlled and stable (4) Diabetes type 2, controlled Code(s): E11.9 - TYPE 2 DIABETES MELLITUS WITHOUT COMPLICATIONS Status: Chronic Assessment and Plan: Continue Accu-Cheks and insulin sliding scale (5) CAD (coronary artery disease) Code(s): I25.10 - ATHSCL HEART DISEASE OF [place] CORONARY ARTERY W/O ANG PCTRS Status: Chronic Assessment and Plan: Stable (6) GERD (gastroesophageal reflux disease) Code(s): K21.9 - GASTRO-ESOPHAGEAL REFLUX DISEASE WITHOUT ESOPHAGITIS Status: Chronic Assessment and Plan: Stable (7) Anxiety and depression Code(s): F41.9 - ANXIETY DISORDER, UNSPECIFIED; F32.9 - MAJOR DEPRESSIVE DISORDER, SINGLE EPISODE, UNSPECIFIED Status: Chronic Assessment and Plan: Mild and stable (8) Dyslipidemia Code(s): E78.5 - HYPERLIPIDEMIA, UNSPECIFIED Status: Chronic Assessment and Plan: Stable (9) hyponatremia Status: Resolved (10) hypokalemia Status: Resolved Will likely need inpatient rehab versus [facility]. Will need 300 mg every 6 hours for 5 days and Peridex rinse 15 mils swish and spit 2 times a day for 1 week.
[2020-08-28] MEDS: HYDROcodone/Acetaminophen 7.5/325 mg Tablet PO PRN (21:14)
[2020-08-28] MEDS: Calcium Carbonate 500 MG ChewTAB PO PRN (21:15)
[2020-08-29 05:57] LABS: #Eosinphils 0.2 thou/uL (0.0-0.7); #Lymphocytes 1.1 thou/uL (1.20-3.40); #Monocytes 0.3 thou/uL (0.11-0.59); #Neutrophils 3.8 thou/uL (1.40-6.50); %Basophils 0.2 % (0.0-1.0); %Eosinophils 3.2 % (0.0-10.0); %Lymphocytes 21.1 % (21.0-51.0); %Monocytes 5.8 % (0.0-10.0); %Neutrophils 69.8 % (42.0-75.0); Hemoglobin 10.6 g/dL (12.0-16.0); Mean Corpuscular HGB CONC 33.2 g/dL (32.0-36.0); Mean Corpuscular Hemoglobin 28.1 pg (27.0-31.0); Mean Corpuscular Volume 84.7 fL (78.0-98.0); Platelet Count 191 thou/uL (130-400); Red Blood Cell (RBC) Count 3.78 mill/uL (4.20-5.40); White Blood Cell (WBC) Count 5.4 thou/uL (4.8-10.8)
[2020-08-29 06:21] LABS: Anion Gap 13 mmol/L (10-20); BUN (Urea Nitrogen) 10 mg/dL (9.8-20.1); Calc. Creatinine Clearance 58 mL/min (70-130); Calcium 9.4 mg/dL (7.8-10.44); Carbon Dioxide 27 mmol/L (23-31); Chloride 103 mmol/L (98-107); Estimated GFR-MDRD 40; Glucose 172 mg/dL (80-115); Potassium 3.7 mmol/L (3.5-5.1); Sodium 139 mmol/L (136-145)
[2020-08-29] MEDS: HumaLOG 300 UNITS/3 ML VIAL SC PRN (06:23)
[2020-08-29] MEDS: Clindamycin/D5W 600 MG in Premix Bag 1 BAG IVPB SCH ×2 (08:37→16:55)
[2020-08-29] MEDS: Chlorhexidine Gluconate 15 ML UDCUP SSP SCH ×2 (08:38→20:50)
[2020-08-29] MEDS: Famotidine 20 MG TAB PO SCH (08:38)
[2020-08-29] MEDS ORDERED: Docusate 100 MG CAP PO SCH (12:30)
[2020-08-29] MEDS ORDERED: Sodium Chloride 0.9% 1,000 ML IV SCH (13:00)
--- NOTE | 2020-08-29 14:00 | PDOC.HOSPP ---
- Subjective Encounter Date: 08/29/20 Encounter Time: 12:20 Subjective: Patient seen for follow-up for periapical abscess. Reports overall pain is better. Denies any new complaints. - Objective Vital Signs & Weight: Vital Signs (12 hours) Temp Pulse Resp BP BP Pulse Ox 08/29/20 08:00 100 08/29/20 07:34 97.7 F 68 20 125/74 100 08/29/20 04:00 97.7 F 68 16 119/69 98 Weight Admit Weight 197 lb Weight 198 lb 7 oz I&O: 08/28/20 08/29/20 08/30/20 06:59 06:59 06:59 Intake Total 350 Balance 350 Result Diagrams: 08/29/20 05:28 08/29/20 05:28 Additional Labs: Accuchecks 08/29/20 08/29/20 08/28/20 11:06 04:23 19:59 POC Glucose 166 H 174 H 193 H 08/28/20 16:26 POC Glucose 212 H I reviewed patient's labs and MAR Hospitalist ROS - Review of Systems Gastrointestinal: denies: nausea, vomiting, abdominal pain, diarrhea, constipation, melena, hematochezia Genitourinary: denies: dysuria, frequency, incontinence, hematuria, retention Skin: denies: rash, lesions, maude - Medication Medications: Active Medications Generic Name Dose Route Start Last Admin Trade Name Freq PRN Reason Stop Dose Admin Hydrocodone Bitart/Acetaminophen 1 tab 08/25/20 21:26 08/28/20 21:14 Hydrocodone/Acetaminophen 7.5/325 Mg Tablet PO 1 tab Q4H PRN Administration Moderate Pain (4-6) Calcium Carbonate 1,000 mg 08/27/20 03:49 08/28/20 21:15 Calcium Carbonate 500 Mg Chewtab PO 1,000 mg Q4H PRN Administration Heartburn or Indigestion Chlorhexidine Gluconate 15 ml 08/26/20 21:00 08/29/20 08:38 Chlorhexidine Gluconate 15 Ml Udcup SSP 15 ml BID RUBÉN Administration Docusate Sodium 100 mg 08/29/20 12:30 08/29/20 13:48 Docusate 100 Mg Cap PO 08/29/20 14:00 100 mg NOW RUBÉN Administration Famotidine 20 mg 08/26/20 09:00 08/29/20 08:38 Famotidine 20 Mg Tab PO 20 mg DAILY RUBÉN Administration Clindamycin Phosphate/Dextrose 50 mls @ 100 mls/hr 08/25/20 23:59 08/29/20 08:37 600 mg/ Device IVPB 50 mls 0800,1600,2359 RUBÉN Administration Insulin Human Lispro 0 units 08/28/20 07:45 08/29/20 06:23 Humalog 300 Units/3 Ml Vial SC 2 unit .MODERATE SLIDING SC PRN Administration Moderate Correctional Scale - Exam General Appearance: awake alert Eye: anicteric sclera ENT: normocephalic atraumatic, no oropharyngeal lesions, moist mucosa Neck: symmetric Heart: RRR, no gallops Respiratory: CTAB Skin: no rashes Psychiatric: normal affect Hosp A/P - Plan -Assessment/plan (1) Periapical abscess Code(s): K04.7 - PERIAPICAL ABSCESS WITHOUT SINUS Status: Acute Assessment and Plan: Continue IV Clindamycin. Status post incision and drainage by OMFS. (2) CKD (chronic kidney disease) stage 3, GFR 30-59 ml/min Code(s): N18.3 - CHRONIC KIDNEY DISEASE, STAGE 3 (MODERATE) * DO NOT USE * Status: Chronic Assessment and Plan: Stable (3) Hypertension Code(s): I10 - ESSENTIAL (PRIMARY) HYPERTENSION Status: Chronic Assessment and Plan: Controlled and stable (4) Diabetes type 2, controlled Code(s): E11.9 - TYPE 2 DIABETES MELLITUS WITHOUT COMPLICATIONS Status: Chronic Assessment and Plan: Continue Accu-Cheks and insulin sliding scale (5) CAD (coronary artery disease) Code(s): I25.10 - ATHSCL HEART DISEASE OF [place] CORONARY ARTERY W/O ANG PCTRS Status: Chronic Assessment and Plan: Stable (6) GERD (gastroesophageal reflux disease) Code(s): K21.9 - GASTRO-ESOPHAGEAL REFLUX DISEASE WITHOUT ESOPHAGITIS Status: Chronic Assessment and Plan: Stable (7) Anxiety and depression Code(s): F41.9 - ANXIETY DISORDER, UNSPECIFIED; F32.9 - MAJOR DEPRESSIVE DISORDER, SINGLE EPISODE, UNSPECIFIED Status: Chronic Assessment and Plan: Mild and stable (8) Dyslipidemia Code(s): E78.5 - HYPERLIPIDEMIA, UNSPECIFIED Status: Chronic Assessment and Plan: Stable (9) hyponatremia Status: Resolved (10) hypokalemia Status: Resolved Awaiting decision regarding swing bed. Continue clindamycin. Continue Peridex. Ambulate patient.
[2020-08-29] MEDS ORDERED: ALPRAZolam 0.25 MG TAB PO PRN (16:33)
[2020-08-29] MEDS ORDERED: ALPRAZolam 0.5 MG TAB PO PRN (16:34)
[2020-08-29] MEDS: HYDROcodone/Acetaminophen 7.5/325 mg Tablet PO PRN (20:49)
[2020-08-29] MEDS: Docusate 100 MG CAP PO SCH (20:50)
[2020-08-30] MEDS: Clindamycin/D5W 600 MG in Premix Bag 1 BAG IVPB SCH ×2 (00:06→08:48)
[2020-08-30] MEDS: HYDROcodone/Acetaminophen 7.5/325 mg Tablet PO PRN (01:37)
[2020-08-30] MEDS: HumaLOG 300 UNITS/3 ML VIAL SC PRN (05:24)
[2020-08-30 05:53] LABS: #Eosinphils 0.2 thou/uL (0.0-0.7); #Lymphocytes 1.5 thou/uL (1.20-3.40); #Monocytes 0.4 thou/uL (0.11-0.59); #Neutrophils 3.7 thou/uL (1.40-6.50); %Basophils 0.2 % (0.0-1.0); %Eosinophils 3.2 % (0.0-10.0); %Lymphocytes 26.3 % (21.0-51.0); %Monocytes 7.2 % (0.0-10.0); %Neutrophils 63.1 % (42.0-75.0); Hemoglobin 10.5 g/dL (12.0-16.0); Mean Corpuscular HGB CONC 33.6 g/dL (32.0-36.0); Mean Corpuscular Hemoglobin 28.7 pg (27.0-31.0); Mean Corpuscular Volume 85.5 fL (78.0-98.0); Mean Platelet Volume 8.9 fL (7.4-10.4); Platelet Count 202 thou/uL (130-400); RBC Distribution Width 15.2 % (11.5-14.5); Red Blood Cell (RBC) Count 3.65 mill/uL (4.20-5.40); White Blood Cell (WBC) Count 5.8 thou/uL (4.8-10.8)
[2020-08-30 06:05] LABS: Anion Gap 12 mmol/L (10-20); BUN (Urea Nitrogen) 10 mg/dL (9.8-20.1); Calc. Creatinine Clearance 59 mL/min (70-130); Carbon Dioxide 25 mmol/L (23-31); Chloride 105 mmol/L (98-107); Estimated GFR-MDRD 41; Glucose 147 mg/dL (80-115); Potassium 3.5 mmol/L (3.5-5.1); Sodium 138 mmol/L (136-145)
[2020-08-30] MEDS: Famotidine 20 MG TAB PO SCH (08:48)
[2020-08-30] MEDS: Docusate 100 MG CAP PO SCH (08:50)
[2020-08-30] MEDS: Chlorhexidine Gluconate 15 ML UDCUP SSP SCH (11:11)
[2020-08-30 11:19] VITALS: BP 133/78; TEMP 97.8
--- NOTE | 2020-08-31 00:21 | DIS ---
DATE OF ADMISSION: 08/25/2020 DATE OF DISCHARGE: 08/30/2020 PRIMARY CARE PROVIDER: Dionna Salazar, DO DISCHARGE DIAGNOSES: 1. Periapical abscess. 2. Chronic kidney disease, stage 3. 3. COVID-19 PCR test negative. CONDITION OF PATIENT ON THE DAY OF DISCHARGE: Stable. I assessed Ms. Cage on the day of discharge. She denies any chest pain or shortness of breath. Vital signs are stable. S1 and S2 are heard, regular. Lungs are clear to auscultation bilaterally. CONSULTATIONS DURING THIS HOSPITALIZATION: Oral Surgery, Dr. Eddy. HOSPITAL COURSE: Ms. Cage is a pleasant 70-year-old lady, who was admitted to [facility] on August 25, 2020, for left mandibular tooth #20, periapical/odontogenic abscess. She was seen by [facility]. On August 26, she underwent simple extraction of tooth #20 and incision and drainage of left vestibular abscess in the mandible. She continued to improve clinically with clindamycin and Peridex mouthwash. She was evaluated by walking program and subsequently by Physical Therapy Service for mobility assessment. She was recommended snf. On the day of discharge, patient was awaiting decision from her insurance company when she decided that she did not wish to go to snf facility, but instead wanted to go home with home health. Arrangements are being made for the same. DISCHARGE MEDICATIONS: 1. Chlorhexidine 0.12% oral rinse 15 mL swish and spit two times a day for 4 more days. 2. Clindamycin 300 mg every 6 hours for 3 more days. Otherwise, no change was made to her pre-admission home medications. DIET: Heart-healthy and diabetic. ACTIVITY: As tolerated. DISCHARGE DESTINATION: Home with home health. TIME SPENT: Total amount of time spent coordinating this discharge: Thirty-two minutes. Job ID: [id number]
== END 2020-08-30 11:58 | disposition home health service (06) | DRG 137 ==
LOC: T4-A 20:25
PROVIDERS: ADMIT Student in an Organized Health Care Education/Training Program; ATTEND Student in an Organized Health Care Education/Training Program
PROC: 0W950ZZ Drainage of Lower Jaw, Open Approach (ICD-10-PCS; principal; 2020-08-26)
PROC: 0CDXXZ0 Extraction of Lower Tooth, Single, External Approach (ICD-10-PCS; 2020-08-26)
DX: K04.7 Periapical abscess without sinus (principal); I13.0 Hypertensive heart and chronic kidney disease with heart failure and stage 1 through stage 4 chronic kidney disease, or unspecified chronic kidney disease; E87.1 Hypo-osmolality and hyponatremia; N18.30 Chronic kidney disease, stage 3 unspecified; Z20.828 Contact with and (suspected) exposure to other viral communicable diseases; K02.9 Dental caries, unspecified; E11.22 Type 2 diabetes mellitus with diabetic chronic kidney disease; I25.10 Atherosclerotic heart disease of native coronary artery without angina pectoris; I50.9 Heart failure, unspecified; F41.9 Anxiety disorder, unspecified; F32.9 Major depressive disorder, single episode, unspecified; R63.0 Anorexia; K21.9 Gastro-esophageal reflux disease without esophagitis; E78.5 Hyperlipidemia, unspecified; E87.6 Hypokalemia; Z90.710 Acquired absence of both cervix and uterus; Z90.49 Acquired absence of other specified parts of digestive tract; Z95.5 Presence of coronary angioplasty implant and graft; Z98.1 Arthrodesis status; Z88.0 Allergy status to penicillin; Z88.8 Allergy status to other drugs, medicaments and biological substances; Z68.31 Body mass index [BMI] 31.0-31.9, adult
CPT/HCPCS: 36415; 36416; 80048; 85025; 87070; 87076; 87205; 87635; J1170; J2270; J2405; J2704; J3010; J3480; J3490; U0003

== ENCOUNTER 2021-01-10 15:23 | Inpatient (IN) | payer MEDICARE, OTHER ==
[2021-01-10] MEDS ORDERED: Aspirin 325 MG TAB ONE (16:46)
[2021-01-10] MEDS ORDERED: Aspirin 325 MG TAB PO SCH (17:00)
[2021-01-10 18:26] LABS: Magnesium 1.6 mg/dL (1.6-2.6); Phosphorus 2.1 mg/dL (2.3-4.7)
[2021-01-10] MEDS ORDERED: Dextrose 50% Abboject 50 ML SYRINGE SLOW IVP PRN (18:26)
[2021-01-10] MEDS ORDERED: Dextrose 5% in Water 1,000 ML IV PRN (18:26)
[2021-01-10] MEDS ORDERED: Magnesium 2 GM/50 ML 2 GM in Premix Bag 1 BAG IVPB SCH (18:45)
[2021-01-10] MEDS ORDERED: Ergocalciferol 1.25 MG(50,000 UNITS) CAP PO SCH (21:00)
[2021-01-10 21:58] VITALS: BMI 29.2
[2021-01-10] MEDS: HumaLOG 300 UNITS/3 ML VIAL SC PRN (21:58)
[2021-01-11] MEDS: Melatonin 3 MG TAB PO PRN ×2 (00:46→20:56)
[2021-01-11] MEDS: HumaLOG 300 UNITS/3 ML VIAL SC PRN ×4 (05:40→17:30)
[2021-01-11 05:42] LABS: #Eosinphils 0.2 thou/uL (0.0-0.7); #Lymphocytes 1.7 thou/uL (1.20-3.40); #Monocytes 0.3 thou/uL (0.11-0.59); #Neutrophils 3.5 thou/uL (1.40-6.50); %Basophils 0.2 % (0.0-1.0); %Eosinophils 3.3 % (0.0-10.0); %Lymphocytes 30.2 % (21.0-51.0); %Monocytes 4.9 % (0.0-10.0); %Neutrophils 61.4 % (42.0-75.0); Mean Corpuscular HGB CONC 33.3 g/dL (32.0-36.0); Mean Corpuscular Hemoglobin 28.7 pg (27.0-31.0); Mean Corpuscular Volume 86.3 fL (78.0-98.0); Mean Platelet Volume 8.8 fL (7.4-10.4); Platelet Count 166 thou/uL (130-400); Red Blood Cell (RBC) Count 3.83 mill/uL (4.20-5.40); White Blood Cell (WBC) Count 5.7 thou/uL (4.8-10.8)
[2021-01-11 05:55] LABS: Anion Gap 12 mmol/L (10-20); BUN (Urea Nitrogen) 8 mg/dL (9.8-20.1); Calc. Creatinine Clearance 56 mL/min (70-130); Calcium 8.5 mg/dL (7.8-10.44); Carbon Dioxide 30 mmol/L (23-31); Cardiac Risk 3.3 (Less than 4.5); Chloride 99 mmol/L (98-107); Cholesterol 72 mg/dl (< 200 Desired); Glucose 275 mg/dL (80-115); HDL Cholesterol 22 mg/dL (>60 Neg Risk); LDL Cholesterol, Calculated 7 mg/dL; Magnesium 2.1 mg/dL (1.6-2.6); Sodium 138 mmol/L (136-145); Triglycerides 213 mg/dL (Less than 150)
[2021-01-11] MEDS ORDERED: Potassium Chloride 20 MEQ TAB PO SCH (08:00)
[2021-01-11] MEDS ORDERED: Potassium Phosphate 30 MMOL in Sodium Chloride 0.9% 250 ML 250 ML IVPB SCH (08:00)
[2021-01-11 08:34] LABS: Phosphorus 3.2 mg/dL (2.3-4.7)
[2021-01-11 08:40] LABS: Hemoglobin A1c 13.6 % (4.0-6.0)
[2021-01-11] MEDS ORDERED: Rosuvastatin 20 MG TAB PO SCH (09:00)
[2021-01-11] MEDS: Ezetimibe 10 MG TAB PO SCH (09:49)
[2021-01-11] MEDS: Atorvastatin Calcium 40 MG TAB PO SCH (20:56)
[2021-01-11] MEDS: ALPRAZolam 0.5 MG TAB PO SCH (20:56)
[2021-01-11] MEDS: HYDROcodone/Acetaminophen 7.5/325 mg Tablet PO PRN (20:56)
[2021-01-11] MEDS ORDERED: Fluconazole 100 MG TAB PO SCH (21:00)
[2021-01-11] MEDS: Pregabalin 75 MG CAP PO SCH (21:30)
[2021-01-12] MEDS: HumaLOG 300 UNITS/3 ML VIAL SC PRN ×5 (02:03→20:28)
[2021-01-12 05:17] LABS: #Eosinphils 0.1 thou/uL (0.0-0.7); #Lymphocytes 1.8 thou/uL (1.20-3.40); #Monocytes 0.3 thou/uL (0.11-0.59); %Basophils 0.2 % (0.0-1.0); %Eosinophils 2.7 % (0.0-10.0); %Lymphocytes 33.7 % (21.0-51.0); %Monocytes 6.5 % (0.0-10.0); %Neutrophils 56.9 % (42.0-75.0); Hemoglobin 11.3 g/dL (12.0-16.0); Mean Corpuscular HGB CONC 35.2 g/dL (32.0-36.0); Mean Corpuscular Volume 85.3 fL (78.0-98.0); Mean Platelet Volume 8.8 fL (7.4-10.4); Platelet Count 149 thou/uL (130-400); RBC Distribution Width 15.2 % (11.5-14.5); Red Blood Cell (RBC) Count 3.78 mill/uL (4.20-5.40); White Blood Cell (WBC) Count 5.3 thou/uL (4.8-10.8)
[2021-01-12 05:39] LABS: Anion Gap 13 mmol/L (10-20); BUN (Urea Nitrogen) 9 mg/dL (9.8-20.1); Calc. Creatinine Clearance 54 mL/min (70-130); Calcium 8.4 mg/dL (7.8-10.44); Carbon Dioxide 25 mmol/L (23-31); Chloride 101 mmol/L (98-107); Glucose 303 mg/dL (80-115); Potassium 3.2 mmol/L (3.5-5.1); Sodium 136 mmol/L (136-145)
[2021-01-12] MEDS ORDERED: PROCHLORPERAZINE EDISYLATE IVPB SCH (10:45)
[2021-01-12] MEDS ORDERED: SODIUM CHLORIDE 0.9% IVPB SCH (10:45)
[2021-01-12] MEDS ORDERED: diphenhydrAMINE 50 MG/ML VIAL IVP SCH (10:45)
[2021-01-12] MEDS: Ezetimibe 10 MG TAB PO SCH (10:51)
[2021-01-12] MEDS: ALPRAZolam 0.5 MG TAB PO SCH ×2 (10:51→22:46)
[2021-01-12] MEDS: Escitalopram Oxalate 20 mg Tablet PO SCH (10:52)
[2021-01-12] MEDS: Atorvastatin Calcium 40 MG TAB PO SCH (20:26)
[2021-01-12] MEDS: Insulin Glargine 30 UNITS in Pre-Filled Syringe 1 EACH SC SCH (20:27)
[2021-01-12] MEDS: Pregabalin 75 MG CAP PO SCH (22:46)
[2021-01-13] MEDS: HumaLOG 300 UNITS/3 ML VIAL SC PRN ×4 (05:27→20:47)
[2021-01-13] MEDS: Escitalopram Oxalate 20 mg Tablet PO SCH (09:26)
[2021-01-13] MEDS: Ezetimibe 10 MG TAB PO SCH (09:26)
[2021-01-13] MEDS: Insulin Glargine 30 UNITS in Pre-Filled Syringe 1 EACH SC SCH ×2 (09:34→20:47)
[2021-01-13] MEDS: ALPRAZolam 0.5 MG TAB PO SCH ×2 (09:34→20:47)
[2021-01-13 09:52] LABS: Anion Gap 14 mmol/L (10-20); BUN (Urea Nitrogen) 9 mg/dL (9.8-20.1); Calc. Creatinine Clearance 55 mL/min (70-130); Calcium 8.9 mg/dL (7.8-10.44); Carbon Dioxide 26 mmol/L (23-31); Chloride 104 mmol/L (98-107); Glucose 247 mg/dL (80-115); Potassium 3.6 mmol/L (3.5-5.1); Sodium 140 mmol/L (136-145)
[2021-01-13] MEDS: Pregabalin 75 MG CAP PO SCH (20:46)
[2021-01-13] MEDS: Atorvastatin Calcium 40 MG TAB PO SCH (20:47)
[2021-01-14] MEDS: Melatonin 3 MG TAB PO PRN ×2 (00:01→21:27)
[2021-01-14] MEDS: HumaLOG 300 UNITS/3 ML VIAL SC PRN ×3 (06:18→17:11)
[2021-01-14] MEDS: Insulin Glargine 30 UNITS in Pre-Filled Syringe 1 EACH SC SCH ×2 (09:48→21:26)
[2021-01-14] MEDS: Ezetimibe 10 MG TAB PO SCH (09:48)
[2021-01-14] MEDS: Escitalopram Oxalate 20 mg Tablet PO SCH (09:48)
[2021-01-14] MEDS: ALPRAZolam 0.5 MG TAB PO SCH ×2 (09:48→21:27)
[2021-01-14] MEDS ORDERED: NPH, Human Insulin Isophane 300 UNIT/3 ML VIAL SC SCH (13:15)
[2021-01-14] MEDS ORDERED: VANCOMYCIN 1.25 GM/250 ML BAG IVPB SCH (13:30)
[2021-01-14] MEDS: VANCOMYCIN 1.25 GM/250 ML BAG 1.25 GM in Premix Bag 1 BAG IVPB SCH ×2 (14:59→23:47)
[2021-01-14] MEDS ORDERED: Linezolid 600 MG TAB PO SCH (21:00)
[2021-01-14] MEDS: Pregabalin 75 MG CAP PO SCH (21:27)
[2021-01-14] MEDS: Atorvastatin Calcium 40 MG TAB PO SCH (21:27)
[2021-01-15] MEDS: Insulin Glargine 30 UNITS in Pre-Filled Syringe 1 EACH SC SCH ×2 (10:28→20:41)
[2021-01-15] MEDS: ALPRAZolam 0.5 MG TAB PO SCH ×2 (10:29→20:40)
[2021-01-15] MEDS: Escitalopram Oxalate 20 mg Tablet PO SCH (10:29)
[2021-01-15] MEDS: Ezetimibe 10 MG TAB PO SCH (10:30)
[2021-01-15] MEDS: HYDROcodone/Acetaminophen 7.5/325 mg Tablet PO PRN ×2 (10:30→20:39)
[2021-01-15] MEDS: HumaLOG 300 UNITS/3 ML VIAL SC PRN ×3 (11:13→20:41)
[2021-01-15] MEDS: VANCOMYCIN 1.25 GM/250 ML BAG 1.25 GM in Premix Bag 1 BAG IVPB SCH (13:31)
[2021-01-15] MEDS: Atorvastatin Calcium 40 MG TAB PO SCH (20:39)
[2021-01-15] MEDS: Pregabalin 75 MG CAP PO SCH (20:40)
[2021-01-15] MEDS: Melatonin 3 MG TAB PO PRN (20:40)
[2021-01-16] MEDS: VANCOMYCIN 1.25 GM/250 ML BAG 1.25 GM in Premix Bag 1 BAG IVPB SCH (00:43)
[2021-01-16] MEDS: Escitalopram Oxalate 20 mg Tablet PO SCH (08:55)
[2021-01-16] MEDS: Ezetimibe 10 MG TAB PO SCH (08:55)
[2021-01-16] MEDS: ALPRAZolam 0.5 MG TAB PO SCH ×2 (08:55→20:21)
[2021-01-16] MEDS: Nitrofurantoin Monohyd/M-Cryst 100 MG CAP PO SCH ×2 (10:05→20:22)
[2021-01-16] MEDS: Insulin Glargine 30 UNITS in Pre-Filled Syringe 1 EACH SC SCH ×2 (10:47→20:25)
[2021-01-16] MEDS: Pregabalin 75 MG CAP PO SCH (20:21)
[2021-01-16] MEDS: Atorvastatin Calcium 40 MG TAB PO SCH (20:22)
[2021-01-16] MEDS: HYDROcodone/Acetaminophen 7.5/325 mg Tablet PO PRN (20:22)
[2021-01-16] MEDS: Melatonin 3 MG TAB PO PRN (21:53)
[2021-01-17 04:49] LABS: #Eosinphils 0.2 thou/uL (0.0-0.7); #Lymphocytes 1.6 thou/uL (1.20-3.40); #Monocytes 0.3 thou/uL (0.11-0.59); #Neutrophils 3.1 thou/uL (1.40-6.50); %Basophils 0.1 % (0.0-1.0); %Eosinophils 4.7 % (0.0-10.0); %Lymphocytes 29.8 % (21.0-51.0); %Monocytes 5.8 % (0.0-10.0); %Neutrophils 59.6 % (42.0-75.0); Mean Corpuscular HGB CONC 32.9 g/dL (32.0-36.0); Mean Corpuscular Volume 88.1 fL (78.0-98.0); Platelet Count 181 thou/uL (130-400); RBC Distribution Width 14.9 % (11.5-14.5); Red Blood Cell (RBC) Count 3.79 mill/uL (4.20-5.40); White Blood Cell (WBC) Count 5.2 thou/uL (4.8-10.8)
[2021-01-17 05:10] LABS: Anion Gap 15 mmol/L (10-20); BUN (Urea Nitrogen) 14 mg/dL (9.8-20.1); Calc. Creatinine Clearance 59 mL/min (70-130); Calcium 8.5 mg/dL (7.8-10.44); Carbon Dioxide 21 mmol/L (23-31); Chloride 106 mmol/L (98-107); Glucose 110 mg/dL (80-115); Potassium 3.8 mmol/L (3.5-5.1); Sodium 138 mmol/L (136-145)
[2021-01-17] MEDS: Nitrofurantoin Monohyd/M-Cryst 100 MG CAP PO SCH ×2 (09:04→20:59)
[2021-01-17] MEDS: Escitalopram Oxalate 20 mg Tablet PO SCH (09:05)
[2021-01-17] MEDS: ALPRAZolam 0.5 MG TAB PO SCH ×2 (09:05→20:59)
[2021-01-17] MEDS: Insulin Glargine 30 UNITS in Pre-Filled Syringe 1 EACH SC SCH ×2 (09:05→20:59)
[2021-01-17] MEDS: Ezetimibe 10 MG TAB PO SCH (09:18)
[2021-01-17] MEDS: Ergocalciferol 1.25 MG(50,000 UNITS) CAP PO SCH (10:16)
[2021-01-17] MEDS: HYDROcodone/Acetaminophen 7.5/325 mg Tablet PO PRN ×2 (15:49→21:02)
[2021-01-17] MEDS: Atorvastatin Calcium 40 MG TAB PO SCH (20:59)
[2021-01-17] MEDS: Pregabalin 75 MG CAP PO SCH (20:59)
[2021-01-17] MEDS: Melatonin 3 MG TAB PO PRN (21:02)
[2021-01-18] MEDS: Nitrofurantoin Monohyd/M-Cryst 100 MG CAP PO SCH ×2 (09:14→20:41)
[2021-01-18] MEDS: Escitalopram Oxalate 20 mg Tablet PO SCH (09:14)
[2021-01-18] MEDS: HYDROcodone/Acetaminophen 7.5/325 mg Tablet PO PRN ×2 (09:14→23:23)
[2021-01-18] MEDS: ALPRAZolam 0.5 MG TAB PO SCH ×2 (09:14→20:43)
[2021-01-18] MEDS: Ezetimibe 10 MG TAB PO SCH (09:14)
[2021-01-18] MEDS: Insulin Glargine 30 UNITS in Pre-Filled Syringe 1 EACH SC SCH (09:18)
[2021-01-18] MEDS ORDERED: Metoclopramide HCl 10 MG/2 ML VIAL IVP SCH (09:45)
[2021-01-18] MEDS ORDERED: diphenhydrAMINE 50 MG/ML VIAL IVP SCH (09:45)
[2021-01-18] MEDS ORDERED: traMADol HCl 50 MG TAB PO PRN (17:34)
[2021-01-18] MEDS: Atorvastatin Calcium 40 MG TAB PO SCH (20:41)
[2021-01-18] MEDS: Pregabalin 75 MG CAP PO SCH (20:44)
[2021-01-18] MEDS: Melatonin 3 MG TAB PO PRN (23:25)
[2021-01-19] MEDS: Insulin Glargine 30 UNITS in Pre-Filled Syringe 1 EACH SC SCH ×2 (00:55→10:38)
[2021-01-19] MEDS: INSULIN GLARGINE SC SCH ×3 (08:38→08:40)
[2021-01-19] MEDS: LIXISENATIDE SC SCH ×3 (08:38→08:40)
[2021-01-19] MEDS: ALPRAZolam 0.5 MG TAB PO SCH ×2 (10:10→20:18)
[2021-01-19] MEDS: Ezetimibe 10 MG TAB PO SCH (10:11)
[2021-01-19] MEDS: Escitalopram Oxalate 20 mg Tablet PO SCH (10:11)
[2021-01-19] MEDS: Nitrofurantoin Monohyd/M-Cryst 100 MG CAP PO SCH ×2 (10:12→20:13)
[2021-01-19] MEDS: HYDROcodone/Acetaminophen 7.5/325 mg Tablet PO PRN ×2 (10:53→20:12)
[2021-01-19] MEDS: HumaLOG 300 UNITS/3 ML VIAL SC PRN (18:28)
[2021-01-19] MEDS: Atorvastatin Calcium 40 MG TAB PO SCH (20:12)
[2021-01-19] MEDS: HumuLIN 70/30 (300 UNITS/3 ML VIAL) SC SCH (20:18)
[2021-01-19] MEDS: Pregabalin 75 MG CAP PO SCH (20:20)
[2021-01-19] MEDS ORDERED: HumuLIN 70/30 (300 UNITS/3 ML VIAL) SC SCH (21:00)
[2021-01-19] MEDS: Melatonin 3 MG TAB PO PRN (21:35)
[2021-01-20 04:59] LABS: #Eosinphils 0.2 thou/uL (0.0-0.7); #Lymphocytes 1.1 thou/uL (1.20-3.40); #Monocytes 0.3 thou/uL (0.11-0.59); #Neutrophils 2.4 thou/uL (1.40-6.50); %Basophils 0.3 % (0.0-1.0); %Lymphocytes 26.9 % (21.0-51.0); %Monocytes 8.5 % (0.0-10.0); %Neutrophils 59.4 % (42.0-75.0); Mean Corpuscular Hemoglobin 30.1 pg (27.0-31.0); Mean Corpuscular Volume 88.3 fL (78.0-98.0); Mean Platelet Volume 8.1 fL (7.4-10.4); Platelet Count 177 thou/uL (130-400); RBC Distribution Width 14.8 % (11.5-14.5); Red Blood Cell (RBC) Count 3.64 mill/uL (4.20-5.40)
[2021-01-20 05:21] LABS: Anion Gap 12 mmol/L (10-20); BUN (Urea Nitrogen) 13 mg/dL (9.8-20.1); Calc. Creatinine Clearance 58 mL/min (70-130); Carbon Dioxide 25 mmol/L (23-31); Chloride 106 mmol/L (98-107); Glucose 107 mg/dL (80-115); Potassium 3.7 mmol/L (3.5-5.1); Sodium 139 mmol/L (136-145)
[2021-01-20] MEDS: ALPRAZolam 0.5 MG TAB PO SCH ×2 (08:46→20:56)
[2021-01-20] MEDS: Nitrofurantoin Monohyd/M-Cryst 100 MG CAP PO SCH ×2 (08:47→20:56)
[2021-01-20] MEDS: Escitalopram Oxalate 20 mg Tablet PO SCH (08:47)
[2021-01-20] MEDS: Ezetimibe 10 MG TAB PO SCH (08:47)
[2021-01-20] MEDS: HumuLIN 70/30 (300 UNITS/3 ML VIAL) SC SCH ×2 (09:35→20:59)
[2021-01-20] MEDS: HYDROcodone/Acetaminophen 7.5/325 mg Tablet PO PRN (20:55)
[2021-01-20] MEDS: Pregabalin 75 MG CAP PO SCH (20:56)
[2021-01-20] MEDS: Atorvastatin Calcium 40 MG TAB PO SCH (20:56)
[2021-01-20] MEDS: Melatonin 3 MG TAB PO PRN (20:56)
[2021-01-21] MEDS: Ezetimibe 10 MG TAB PO SCH (08:54)
[2021-01-21] MEDS: Nitrofurantoin Monohyd/M-Cryst 100 MG CAP PO SCH ×2 (08:54→20:32)
[2021-01-21] MEDS: ALPRAZolam 0.5 MG TAB PO SCH ×2 (08:54→20:32)
[2021-01-21] MEDS: Escitalopram Oxalate 20 mg Tablet PO SCH (08:55)
[2021-01-21] MEDS: HumuLIN 70/30 (300 UNITS/3 ML VIAL) SC SCH ×2 (08:55→23:06)
[2021-01-21] MEDS: HumaLOG 300 UNITS/3 ML VIAL SC PRN (12:50)
[2021-01-21] MEDS: Pregabalin 75 MG CAP PO SCH (20:32)
[2021-01-21] MEDS: Atorvastatin Calcium 40 MG TAB PO SCH (20:32)
[2021-01-22] MEDS: Melatonin 3 MG TAB PO PRN ×2 (00:23→21:17)
[2021-01-22] MEDS: HYDROcodone/Acetaminophen 7.5/325 mg Tablet PO PRN ×3 (00:24→21:17)
[2021-01-22 05:17] LABS: Hemoglobin 10.4 g/dL (12.0-16.0); Mean Corpuscular HGB CONC 32.2 g/dL (32.0-36.0); Mean Corpuscular Hemoglobin 28.4 pg (27.0-31.0); Mean Corpuscular Volume 87.9 fL (78.0-98.0); Mean Platelet Volume 7.7 fL (7.4-10.4); Platelet Count 181 thou/uL (130-400); RBC Distribution Width 14.7 % (11.5-14.5); Red Blood Cell (RBC) Count 3.66 mill/uL (4.20-5.40); White Blood Cell (WBC) Count 4.5 thou/uL (4.8-10.8)
[2021-01-22 05:37] LABS: Anion Gap 12 mmol/L (10-20); BUN (Urea Nitrogen) 12 mg/dL (9.8-20.1); Calc. Creatinine Clearance 67 mL/min (70-130); Calcium 8.9 mg/dL (7.8-10.44); Carbon Dioxide 25 mmol/L (23-31); Chloride 106 mmol/L (98-107); Glucose 130 mg/dL (80-115); Potassium 3.7 mmol/L (3.5-5.1); Sodium 139 mmol/L (136-145)
[2021-01-22] MEDS: Escitalopram Oxalate 20 mg Tablet PO SCH (08:57)
[2021-01-22] MEDS: Ezetimibe 10 MG TAB PO SCH (08:57)
[2021-01-22] MEDS: Nitrofurantoin Monohyd/M-Cryst 100 MG CAP PO SCH ×2 (08:57→21:18)
[2021-01-22] MEDS: HumuLIN 70/30 (300 UNITS/3 ML VIAL) SC SCH ×2 (08:58→21:28)
[2021-01-22] MEDS: HumaLOG 300 UNITS/3 ML VIAL SC PRN (11:36)
[2021-01-22] MEDS: Ibuprofen 200 MG TAB PO PRN (18:46)
[2021-01-22] MEDS: Pregabalin 75 MG CAP PO SCH (21:18)
[2021-01-22] MEDS: Atorvastatin Calcium 40 MG TAB PO SCH (21:18)
[2021-01-23] MEDS: Escitalopram Oxalate 20 mg Tablet PO SCH (09:11)
[2021-01-23] MEDS: HumuLIN 70/30 (300 UNITS/3 ML VIAL) SC SCH ×2 (09:11→21:04)
[2021-01-23] MEDS: Ezetimibe 10 MG TAB PO SCH (09:11)
[2021-01-23] MEDS: Nitrofurantoin Monohyd/M-Cryst 100 MG CAP PO SCH ×2 (09:11→21:05)
[2021-01-23] MEDS: HumaLOG 300 UNITS/3 ML VIAL SC PRN (17:39)
[2021-01-23] MEDS: Melatonin 3 MG TAB PO PRN (21:03)
[2021-01-23] MEDS: Atorvastatin Calcium 40 MG TAB PO SCH (21:04)
[2021-01-23] MEDS: Pregabalin 75 MG CAP PO SCH (21:04)
[2021-01-24 05:05] LABS: Mean Corpuscular HGB CONC 33.8 g/dL (32.0-36.0); Mean Corpuscular Hemoglobin 29.7 pg (27.0-31.0); Mean Corpuscular Volume 87.7 fL (78.0-98.0); Mean Platelet Volume 7.8 fL (7.4-10.4); Platelet Count 170 thou/uL (130-400); RBC Distribution Width 14.4 % (11.5-14.5); Red Blood Cell (RBC) Count 3.71 mill/uL (4.20-5.40); White Blood Cell (WBC) Count 4.7 thou/uL (4.8-10.8)
[2021-01-24 05:30] LABS: Anion Gap 13 mmol/L (10-20); BUN (Urea Nitrogen) 12 mg/dL (9.8-20.1); Calc. Creatinine Clearance 64 mL/min (70-130); Carbon Dioxide 21 mmol/L (23-31); Chloride 109 mmol/L (98-107); Glucose 116 mg/dL (80-115); Potassium 3.9 mmol/L (3.5-5.1); Sodium 139 mmol/L (136-145)
[2021-01-24] MEDS: Ezetimibe 10 MG TAB PO SCH (09:22)
[2021-01-24] MEDS: Nitrofurantoin Monohyd/M-Cryst 100 MG CAP PO SCH (09:22)
[2021-01-24] MEDS: Escitalopram Oxalate 20 mg Tablet PO SCH (09:22)
[2021-01-24] MEDS: HumuLIN 70/30 (300 UNITS/3 ML VIAL) SC SCH ×2 (09:22→22:25)
[2021-01-24] MEDS: Ergocalciferol 1.25 MG(50,000 UNITS) CAP PO SCH (09:30)
[2021-01-24] MEDS: Artificial Tear Sol 15 ML BOT EA EYE PRN ×2 (14:56→17:51)
[2021-01-24] MEDS: HumaLOG 300 UNITS/3 ML VIAL SC PRN (17:48)
[2021-01-24] MEDS: Pregabalin 75 MG CAP PO SCH (21:03)
[2021-01-24] MEDS: Atorvastatin Calcium 40 MG TAB PO SCH (21:03)
[2021-01-24] MEDS: Melatonin 3 MG TAB PO PRN (21:11)
[2021-01-24] MEDS: HYDROcodone/Acetaminophen 7.5/325 mg Tablet PO PRN (22:24)
[2021-01-24] MEDS ORDERED: Loperamide HCl 2 MG CAP PO SCH (23:15)
[2021-01-25] MEDS: HYDROcodone/Acetaminophen 7.5/325 mg Tablet PO PRN ×2 (09:01→20:11)
[2021-01-25] MEDS: Ezetimibe 10 MG TAB PO SCH (09:02)
[2021-01-25] MEDS: Escitalopram Oxalate 20 mg Tablet PO SCH (09:02)
[2021-01-25] MEDS: HumuLIN 70/30 (300 UNITS/3 ML VIAL) SC SCH ×2 (09:03→20:08)
[2021-01-25] MEDS: HumaLOG 300 UNITS/3 ML VIAL SC PRN (11:15)
[2021-01-25] MEDS: Atorvastatin Calcium 40 MG TAB PO SCH (20:07)
[2021-01-25] MEDS: Pregabalin 75 MG CAP PO SCH (20:07)
[2021-01-25] MEDS: Melatonin 3 MG TAB PO PRN (20:11)
[2021-01-26] MEDS: Ezetimibe 10 MG TAB PO SCH (08:47)
[2021-01-26] MEDS: HYDROcodone/Acetaminophen 7.5/325 mg Tablet PO PRN (08:47)
[2021-01-26] MEDS: Escitalopram Oxalate 20 mg Tablet PO SCH (08:50)
[2021-01-26] MEDS: HumuLIN 70/30 (300 UNITS/3 ML VIAL) SC SCH ×2 (08:52→20:49)
[2021-01-26] MEDS: Pregabalin 75 MG CAP PO SCH (20:50)
[2021-01-26] MEDS: Melatonin 3 MG TAB PO PRN (20:50)
[2021-01-26] MEDS: Atorvastatin Calcium 40 MG TAB PO SCH (20:51)
[2021-01-27] MEDS: HumuLIN 70/30 (300 UNITS/3 ML VIAL) SC SCH ×2 (09:22→20:25)
[2021-01-27] MEDS: Ezetimibe 10 MG TAB PO SCH (09:23)
[2021-01-27] MEDS: Escitalopram Oxalate 20 mg Tablet PO SCH (09:23)
[2021-01-27] MEDS: HumaLOG 300 UNITS/3 ML VIAL SC PRN (11:40)
[2021-01-27] MEDS: Atorvastatin Calcium 40 MG TAB PO SCH (20:25)
[2021-01-27] MEDS: Pregabalin 75 MG CAP PO SCH (20:25)
[2021-01-27] MEDS: Ibuprofen 200 MG TAB PO PRN (23:42)
[2021-01-28] MEDS: HumuLIN 70/30 (300 UNITS/3 ML VIAL) SC SCH ×2 (09:28→21:26)
[2021-01-28] MEDS: Ezetimibe 10 MG TAB PO SCH (09:29)
[2021-01-28] MEDS: Escitalopram Oxalate 20 mg Tablet PO SCH (09:29)
[2021-01-28] MEDS ORDERED: Loperamide HCl 2 MG CAP PO SCH (15:00)
[2021-01-28] MEDS: Pregabalin 75 MG CAP PO SCH (20:11)
[2021-01-28] MEDS: Atorvastatin Calcium 40 MG TAB PO SCH (20:12)
[2021-01-28] MEDS: HYDROcodone/Acetaminophen 7.5/325 mg Tablet PO PRN (21:30)
[2021-01-29] MEDS: Escitalopram Oxalate 20 mg Tablet PO SCH (09:01)
[2021-01-29] MEDS: Ezetimibe 10 MG TAB PO SCH (09:01)
[2021-01-29] MEDS: HumuLIN 70/30 (300 UNITS/3 ML VIAL) SC SCH ×2 (09:03→20:57)
[2021-01-29] MEDS: HumaLOG 300 UNITS/3 ML VIAL SC PRN ×2 (12:10→15:42)
[2021-01-29] MEDS: HYDROcodone/Acetaminophen 7.5/325 mg Tablet PO PRN (19:45)
[2021-01-29] MEDS: Pregabalin 75 MG CAP PO SCH (19:46)
[2021-01-29] MEDS: Atorvastatin Calcium 40 MG TAB PO SCH (19:46)
[2021-01-30 07:49] VITALS: BP 150/79; TEMP 97.6
[2021-01-30] MEDS: Escitalopram Oxalate 20 mg Tablet PO SCH (08:36)
[2021-01-30] MEDS: Ezetimibe 10 MG TAB PO SCH (08:36)
[2021-01-30] MEDS: HumuLIN 70/30 (300 UNITS/3 ML VIAL) SC SCH (08:37)
== END 2021-01-30 09:36 | disposition swing bed (61) | DRG 638 ==
LOC: ERS 15:23 → 2SE 16:58 → OBSVTOIN 16:58 → INTOOBSV 16:58 → SURG A 01-25 00:23
PROVIDERS: ADMIT Internal Medicine; ATTEND Internal Medicine
DX: E11.65 Type 2 diabetes mellitus with hyperglycemia (principal); G45.9 Transient cerebral ischemic attack, unspecified; N30.00 Acute cystitis without hematuria; Z20.822 Contact with and (suspected) exposure to COVID-19; D63.1 Anemia in chronic kidney disease; I25.10 Atherosclerotic heart disease of native coronary artery without angina pectoris; E78.5 Hyperlipidemia, unspecified; F32.9 Major depressive disorder, single episode, unspecified; E83.39 Other disorders of phosphorus metabolism; E83.42 Hypomagnesemia; K21.9 Gastro-esophageal reflux disease without esophagitis; F41.9 Anxiety disorder, unspecified; N18.30 Chronic kidney disease, stage 3 unspecified; E11.22 Type 2 diabetes mellitus with diabetic chronic kidney disease; I12.9 Hypertensive chronic kidney disease with stage 1 through stage 4 chronic kidney disease, or unspecified chronic kidney disease; E66.9 Obesity, unspecified; R00.1 Bradycardia, unspecified; R29.6 Repeated falls; I34.0 Nonrheumatic mitral (valve) insufficiency; B95.2 Enterococcus as the cause of diseases classified elsewhere; E11.649 Type 2 diabetes mellitus with hypoglycemia without coma; M25.552 Pain in left hip; M25.551 Pain in right hip; H53.8 Other visual disturbances; H04.129 Dry eye syndrome of unspecified lacrimal gland; Z95.5 Presence of coronary angioplasty implant and graft; Z90.49 Acquired absence of other specified parts of digestive tract; Z90.710 Acquired absence of both cervix and uterus; Z88.0 Allergy status to penicillin; Z88.8 Allergy status to other drugs, medicaments and biological substances; Z79.899 Other long term (current) drug therapy; Z79.4 Long term (current) use of insulin; Z86.73 Personal history of transient ischemic attack (TIA), and cerebral infarction without residual deficits
CPT/HCPCS: 36415; 36416; 70450; 70551; 72170; 80048; 80061; 82607; 83036; 83735; 84100; 85025; 85027; 87077; 87086; 87186; 93306; 93880; 95712; 95819; 95957; J0780; J1200; J1815; J2765; J3370; J3475; J7050

== ENCOUNTER 2021-02-17 18:07 | Observation (INO) | payer MEDICARE, MEDICAID ==
[2021-02-17] MEDS ORDERED: Acetaminophen 325 MG TAB PO PRN (20:07)
[2021-02-17] MEDS ORDERED: Insulin Regular 300 UNITS/3 ML VIAL SC PRN (20:13)
[2021-02-17] MEDS ORDERED: Dextrose 5% in Water 1,000 ML IV PRN (20:13)
[2021-02-17] MEDS ORDERED: Dextrose 50% Abboject 50 ML SYRINGE SLOW IVP PRN (20:13)
[2021-02-17] MEDS ORDERED: HumaLOG 300 UNITS/3 ML VIAL SC PRN (20:13)
[2021-02-17] MEDS ORDERED: Fentanyl 100 MCG/2 ML VIAL SLOW IVP PRN (20:15)
[2021-02-17 20:51] LABS: #Eosinphils 0.1 thou/uL (0.0-0.7); #Lymphocytes 1.7 thou/uL (1.20-3.40); #Monocytes 0.5 thou/uL (0.11-0.59); #Neutrophils 6.3 thou/uL (1.40-6.50); %Basophils 0.1 % (0.0-1.0); %Eosinophils 1.6 % (0.0-10.0); %Lymphocytes 19.7 % (21.0-51.0); %Monocytes 5.7 % (0.0-10.0); Hemoglobin 12.1 g/dL (12.0-16.0); Mean Corpuscular HGB CONC 34.6 g/dL (32.0-36.0); Mean Corpuscular Hemoglobin 29.4 pg (27.0-31.0); Mean Corpuscular Volume 85.1 fL (78.0-98.0); Platelet Count 167 thou/uL (130-400); RBC Distribution Width 14.3 % (11.5-14.5); Red Blood Cell (RBC) Count 4.11 mill/uL (4.20-5.40); White Blood Cell (WBC) Count 8.7 thou/uL (4.8-10.8)
[2021-02-17 21:09] LABS: Anion Gap 12 mmol/L (10-20); BUN (Urea Nitrogen) 19 mg/dL (9.8-20.1); Calc. Creatinine Clearance 54 mL/min (70-130); Calcium 9.2 mg/dL (7.8-10.44); Carbon Dioxide 28 mmol/L (23-31); Chloride 104 mmol/L (98-107); Glucose 195 mg/dL (80-115); Potassium 3.4 mmol/L (3.5-5.1); Sodium 141 mmol/L (136-145)
[2021-02-17] MEDS ORDERED: Potassium Chloride 20 MEQ TAB PO SCH (21:45)
[2021-02-17] MEDS: Rosuvastatin 20 MG TAB PO SCH (21:55)
[2021-02-17] MEDS: Nitroglycerin 2% Ointment 1 INCH/1 GM Packet TOP SCH (21:56)
[2021-02-17] MEDS: Temazepam 15 MG CAP PO PRN (22:34)
[2021-02-18] MEDS: Nitroglycerin 2% Ointment 1 INCH/1 GM Packet TOP SCH ×3 (05:05→22:37)
[2021-02-18 05:24] LABS: #Eosinphils 0.1 thou/uL (0.0-0.7); #Lymphocytes 1.8 thou/uL (1.20-3.40); #Monocytes 0.6 thou/uL (0.11-0.59); #Neutrophils 5.8 thou/uL (1.40-6.50); %Basophils 0.4 % (0.0-1.0); %Eosinophils 1.7 % (0.0-10.0); %Lymphocytes 21.6 % (21.0-51.0); %Monocytes 7.1 % (0.0-10.0); %Neutrophils 69.2 % (42.0-75.0); Hemoglobin 11.6 g/dL (12.0-16.0); Mean Corpuscular HGB CONC 33.3 g/dL (32.0-36.0); Mean Corpuscular Hemoglobin 28.7 pg (27.0-31.0); Mean Corpuscular Volume 86.3 fL (78.0-98.0); Mean Platelet Volume 9.2 fL (7.4-10.4); Platelet Count 158 thou/uL (130-400); RBC Distribution Width 14.2 % (11.5-14.5); Red Blood Cell (RBC) Count 4.03 mill/uL (4.20-5.40); White Blood Cell (WBC) Count 8.3 thou/uL (4.8-10.8)
[2021-02-18 05:49] LABS: Phosphorus 4.2 mg/dL (2.3-4.7)
[2021-02-18 05:53] LABS: Troponin I Less than 0.010 ng/mL (< 0.028)
[2021-02-18 05:55] LABS: ALT (SGPT) 28 U/L (8-55); AST (SGOT) 18 U/L (5-34); Albumin 3.6 g/dL (3.4-4.8); Alkaline Phosphatase 95 U/L (40-110); Anion Gap 14 mmol/L (10-20); BUN (Urea Nitrogen) 19 mg/dL (9.8-20.1); Bilirubin, Total 0.6 mg/dL (0.2-1.2); Calc. Creatinine Clearance 58 mL/min (70-130); Calcium 9.4 mg/dL (7.8-10.44); Carbon Dioxide 26 mmol/L (23-31); Chloride 103 mmol/L (98-107); Globulin 3.1 g/dL (2.4-3.5); Glucose 178 mg/dL (80-115); Magnesium 1.7 mg/dL (1.6-2.6); Potassium 4.1 mmol/L (3.5-5.1); Protein, Total 6.7 g/dL (5.8-8.1); Sodium 139 mmol/L (136-145)
[2021-02-18] MEDS: Potassium Chloride 20 MEQ TAB PO SCH (07:56)
[2021-02-18] MEDS: Ezetimibe 10 MG TAB PO SCH (07:57)
[2021-02-18] MEDS: Escitalopram Oxalate 20 mg Tablet PO SCH (07:58)
[2021-02-18] MEDS: Amlodipine 5 MG TAB PO SCH (08:00)
[2021-02-18] MEDS ORDERED: Magnesium 2 GM/50 ML 2 GM in Premix Bag 1 BAG IVPB SCH (08:45)
[2021-02-18] MEDS ORDERED: Senokot 8.6 MG TAB PO PRN (08:54)
[2021-02-18] MEDS ORDERED: Melatonin 3 MG TAB PO PRN (08:54)
[2021-02-18] MEDS ORDERED: Enoxaparin Sodium 40 MG/0.4 ML SYRINGE SC SCH (09:00)
[2021-02-18] MEDS ORDERED: Regadenoson 0.4 MG/5 ML SYRINGE ONE (11:07)
[2021-02-18 15:42] LABS: Bacteria/HPF 3+ HPF (None Seen); Bilirubin Negative (Negative); Blood, Urine Negative (Negative); Clarity Clear (Clear); Glucose, Urine (Dipstick) Normal (Negative); Ketone, Urine Negative (Negative); Leukocyte Negative Leu/uL (Negative); Nitrite Negative (Negative); Protein, Urine (Dipstick) Negative (Neg-Trace); RBC/HPF 0-3 HPF (0-3); Specific Gravity, Urine 1.019 (1.002-1.036); Urobilinogen Normal mg/dL (Less than 2); WBC/HPF 0-3 HPF (0-3)
[2021-02-18 15:52] LABS: Urine Culture Reflex No No
[2021-02-18] MEDS ORDERED: Communication Order-Pharmacy FS SCH (19:15)
[2021-02-18] MEDS: Rosuvastatin 20 MG TAB PO SCH (19:59)
[2021-02-18] MEDS: Temazepam 15 MG CAP PO PRN (22:36)
[2021-02-19 05:20] LABS: #Eosinphils 0.2 thou/uL (0.0-0.7); #Lymphocytes 1.7 thou/uL (1.20-3.40); #Monocytes 0.6 thou/uL (0.11-0.59); #Neutrophils 5.3 thou/uL (1.40-6.50); %Basophils 0.3 % (0.0-1.0); %Eosinophils 2.6 % (0.0-10.0); %Lymphocytes 21.9 % (21.0-51.0); %Monocytes 7.4 % (0.0-10.0); %Neutrophils 67.9 % (42.0-75.0); Hemoglobin 11.6 g/dL (12.0-16.0); Mean Corpuscular HGB CONC 33.2 g/dL (32.0-36.0); Mean Corpuscular Hemoglobin 28.4 pg (27.0-31.0); Mean Corpuscular Volume 85.6 fL (78.0-98.0); Mean Platelet Volume 8.6 fL (7.4-10.4); Platelet Count 171 thou/uL (130-400); RBC Distribution Width 14.2 % (11.5-14.5); White Blood Cell (WBC) Count 7.7 thou/uL (4.8-10.8)
[2021-02-19 05:44] LABS: Anion Gap 18 mmol/L (10-20); BUN (Urea Nitrogen) 16 mg/dL (9.8-20.1); Calc. Creatinine Clearance 63 mL/min (70-130); Calcium 8.9 mg/dL (7.8-10.44); Carbon Dioxide 21 mmol/L (23-31); Chloride 104 mmol/L (98-107); Glucose 157 mg/dL (80-115); Magnesium 1.9 mg/dL (1.6-2.6); Sodium 139 mmol/L (136-145)
[2021-02-19] MEDS: Nitroglycerin 2% Ointment 1 INCH/1 GM Packet TOP SCH (05:50)
[2021-02-19] MEDS: Potassium Chloride 20 MEQ TAB PO SCH (05:51)
[2021-02-19] MEDS: Ezetimibe 10 MG TAB PO SCH (05:51)
[2021-02-19] MEDS: Amlodipine 5 MG TAB PO SCH (05:51)
[2021-02-19] MEDS: Escitalopram Oxalate 20 mg Tablet PO SCH (05:53)
[2021-02-19] MEDS ORDERED: Sodium Chloride 0.9% 1,000 ML IV SCH (06:00)
[2021-02-19] MEDS ORDERED: Lidocaine 1% (PF) 30 ML VIAL ONE (06:31)
[2021-02-19] MEDS ORDERED: Midazolam HCl 2 mg/2 ml Vial ONE (07:13)
[2021-02-19] MEDS ORDERED: Fentanyl 100 MCG/2 ML VIAL ONE (07:13)
[2021-02-19] MEDS ORDERED: Nitroglycerin 0.4 MG TAB (25 Tab Bottle) SL PRN (08:07)
[2021-02-19] MEDS ORDERED: Sodium Chloride 0.9% 200 ML IV PRN (08:07)
[2021-02-19] MEDS ORDERED: Iopamidol 370 76% 100 ML VIAL ONE (11:20)
[2021-02-19 12:09] VITALS: BP 133/77; TEMP 97.3
[2021-02-19 14:58] VITALS: BMI 29.6
[2021-02-20] MEDS ORDERED: Aspirin 81 mg Enteric Coated Tablet PO SCH (09:00)
== END 2021-02-19 14:40 | disposition home or self-care (01) ==
LOC: 2SW 18:18
PROVIDERS: ADMIT Internal Medicine; ATTEND Internal Medicine
PROC: 4A023N7 Measurement of Cardiac Sampling and Pressure, Left Heart, Percutaneous Approach (ICD-10-PCS; principal; 2021-02-19)
PROC: B2111ZZ Fluoroscopy of Multiple Coronary Arteries using Low Osmolar Contrast (ICD-10-PCS; 2021-02-19)
DX: I25.10 Atherosclerotic heart disease of native coronary artery without angina pectoris (principal); Q24.5 Malformation of coronary vessels; R07.89 Other chest pain; I95.1 Orthostatic hypotension; E78.5 Hyperlipidemia, unspecified; I08.1 Rheumatic disorders of both mitral and tricuspid valves; I12.9 Hypertensive chronic kidney disease with stage 1 through stage 4 chronic kidney disease, or unspecified chronic kidney disease; E11.22 Type 2 diabetes mellitus with diabetic chronic kidney disease; N18.30 Chronic kidney disease, stage 3 unspecified; D63.1 Anemia in chronic kidney disease; E87.6 Hypokalemia; E83.42 Hypomagnesemia; K21.9 Gastro-esophageal reflux disease without esophagitis; Z79.4 Long term (current) use of insulin; Z79.899 Other long term (current) drug therapy; Z88.0 Allergy status to penicillin; Z88.5 Allergy status to narcotic agent; Z91.018 Allergy to other foods; Z95.5 Presence of coronary angioplasty implant and graft
CPT/HCPCS: 70450; 71046; 76942; 78452; 80048 ×2; 81001; 82962 ×2; 83735 ×2; 84100; 84484 ×3; 85025 ×2; 93017; 93458; 96372; 96374; 97139 ×2; A9500; G0378 ×3; 36415; 36416; 80053; 84443; 99152; 99153; J1650; J2001; J2250; J2785; J3010; J3475; Q9967

== ENCOUNTER 2021-02-26 11:40 | Outpatient (CLI) | payer MEDICARE, MEDICAID | END 2021-02-26 11:41 | disposition home or self-care (01) | LOC: BICMAMMO 11:40 | PROVIDERS: ATTEND Family Medicine | DX: Z12.31 Encounter for screening mammogram for malignant neoplasm of breast (principal) | CPT/HCPCS: 77063; 77067 ==

== ENCOUNTER 2023-07-20 12:58 | Emergency (ER) | payer MEDICAID, MEDICARE, OTHER ==
[~2023-07-20 12:58] MED LIST changes: -ISOVUE-370 76%-LOCM 1 ML ONE; +Iopamidol-370 76% 500 ML MDV (1 ML CHARGE) ONE
[2023-07-20] MEDS ORDERED: Ondansetron PF 4 MG/2 ML Vial ONE (13:27)
[2023-07-20] MEDS ORDERED: Ketorolac Tromethamine 30 MG/ML VIAL ONE (13:27)
[2023-07-20 13:42] LABS: #Eosinphils 0.1 thou/uL (0.0-0.7); #Monocytes 0.3 thou/uL (0.11-0.59); #Neutrophils 4.5 thou/uL (1.40-6.50); %Basophils 0.6 % (0.0-1.0); %Lymphocytes 23.8 % (21.0-51.0); %Monocytes 5.2 % (0.0-10.0); %Neutrophils 67.9 % (42.0-75.0); Hematocrit 39.3 % (36.0-47.0); Hemoglobin 13.4 g/dL (12.0-16.0); Mean Corpuscular HGB CONC 34.1 g/dL (32.0-36.0); Mean Corpuscular Volume 85.1 fl (78.0-98.0); Mean Platelet Volume 10.6 fL (7.4-10.4); Platelet Count 196 10x3/uL (130-400); RBC Distribution Width 13.9 % (11.5-14.5); Red Blood Cell (RBC) Count 4.62 mill/uL (4.20-5.40); White Blood Cell (WBC) Count 6.6 10x3/uL (4.8-10.8)
[2023-07-20 13:48] LABS: Bacteria/HPF 2+ HPF (None Seen); Bilirubin Negative (Negative); Blood, Urine Negative (Negative); CAUTI Indications for Culture Pelvic or flank pain; Clarity Turbid (Clear); Glucose, Urine (Dipstick) Normal (Negative); Ketone, Urine Negative (Negative); Leukocyte 500 Leu/uL (Negative); Nitrite Negative (Negative); Protein, Urine (Dipstick) Negative (Neg-Trace); RBC/HPF 0-3 HPF (0-3); Squamous Epithelial 0-3 HPF (0-3); Urobilinogen Normal mg/dL (Less than 2); WBC/HPF Greater than 50 HPF (0-3)
[2023-07-20 13:52] LABS: Urine Culture Reflex Yes Yes
[2023-07-20] MEDS ORDERED: cefTRIAXone (ROCEPHIN) 2 GM VIAL ONE (13:56)
[2023-07-20 14:09] LABS: ALT (SGPT) Less than 7 U/L (8-55); AST (SGOT) 13 U/L (5-34); Albumin 3.9 g/dL (3.4-4.8); Alkaline Phosphatase 77 U/L (40-110); Anion Gap 10 mmol/L (10-20); BUN (Urea Nitrogen) 11 mg/dL (9.8-20.1); Bilirubin, Total 0.5 mg/dL (0.2-1.2); Calc. Creatinine Clearance 0 mL/min (70-130); Calcium 9.4 mg/dL (7.8-10.44); Carbon Dioxide 26 mmol/L (23-31); Chloride 105 mmol/L (98-107); Estimated GFR 74; Globulin 3.1 g/dL (2.4-3.5); Glucose 107 mg/dL (80-115); Lipase 25 U/L (8-78); Potassium 3.9 mmol/L (3.5-5.1); Sodium 137 mmol/L (136-145)
== END 2023-07-20 16:30 | disposition home or self-care (01) ==
LOC: ERS 12:58
DX: N39.0 Urinary tract infection, site not specified (principal); E11.22 Type 2 diabetes mellitus with diabetic chronic kidney disease; N18.30 Chronic kidney disease, stage 3 unspecified; I12.9 Hypertensive chronic kidney disease with stage 1 through stage 4 chronic kidney disease, or unspecified chronic kidney disease; Z79.899 Other long term (current) drug therapy; Z79.4 Long term (current) use of insulin
CPT/HCPCS: 71045; 74177; 80053; 81001; 83690; 85025; 87077; 87086; 87186; 93005; 96365; 96375; J0696; J1885; J2405; Q9967